=== PATIENT | female | born 1985 | race Caucasian/White ===

== ENCOUNTER 2017-04-21 18:19 | Emergency (ER) | payer OTHER, SELFPAY | END 2017-04-21 19:22 | disposition home or self-care (01) | PROVIDERS: Emergency Provider Nurse Practitioner; Family Provider Family Medicine; Visit Provider Nurse Practitioner | DX: J06.9 Acute upper respiratory infection, unspecified (principal); Z88.1 Allergy status to other antibiotic agents; R05 Cough | CPT/HCPCS: 87804; 99201 ==

== ENCOUNTER 2017-05-24 11:50 | Emergency (ER) | payer OTHER, SELFPAY ==
[2017-05-24 12:00] VITALS: BP 153/87; PULSE 94; RESP 20; TEMP 36.8; O2SAT 97; BMI 33.6
--- NOTE | 2017-05-24 12:15 | HMH.EDUTC ---
[facility] [place] Disposition Clinical Impression: Eustachian tube dysfunction Qualifiers: Laterality: bilateral Qualified Code(s): H69.83 - Other specified disorders of Eustachian tube, bilateral Disposition: Home, Self-Care Condition on Discharge: Good Instructions: DI for Eustachian Tube Dysfunction-Adult Additional Instructions: Continue zyrtec Start the flonase you have at home. 2 sprays each nostril daily. Can take several days to notice improvement Start sudafed. Ask for this at the pharmacy as it is behind the counter Sleep elevated Gargle warm salt water if sore throat starts I understand your history. Typically We try antihistamine, nasal steroid and decongestant first but I understand you want steroids because they haven't improved in the past without them. Steroids have risk and side effects as we discussed. Since you understand this, I will prescribe them at your request. Take as directed. Follow up for any new, worsening, or persistent symptoms. Fluid can lead to infection but no sign of infection at this time. Prescriptions: predniSONE [Prednisone 20mg Tab] 20 mg PO BID #10 tab Time of Disposition: 12:16 Medical Decision Making Vital Signs: 05/24/17 12:00 Temperature 98.2 F Temperature Source Temporal Artery Scan Pulse Rate [Right] 94 H Respiratory Rate 20 Blood Pressure [Right Arm] 153/87 Blood Pressure Mean [Right Arm] 109 Blood Pressure Source [Right Arm] Automatic Cuff Blood Pressure Position [Right Arm] Sitting 02 Sat by Pulse Oximetry 97 Oxygen Delivery Method Room Air - Pilo Inquiry Pt receiving controlled substance: No [facility] [place] HPI - General Stated complaint: earache Time Seen by Provider: 05/24/17 12:00 Mode of Arrival: Ambulatory Source of Information: Patient Limitations: No Limitations Description of Symptoms (Recalled from Triage Doc. by RN): EARS ACHE BEGAN YESTERDAY HEENT Symptoms (Recalled from RN notes): Yes Resp Symptoms (Recalled from RN notes): No Skin Symptoms (Recalled from RN notes): No MS Symptoms (Recalled from RN notes): No Functional Status (Recalled from RN notes): N - History of Present Illness Provider Complaint: c/o bilateral ear pain starting yesterday. Worried she has an ear infection. Worse today. Right worse then left. Worse when laying down, chewing, sneezing. Describes as fullness/pressure. Hearing seems muffled at times. Hx of OM. Last one Summer 2016. Denies hx of recent illness. I always have allergies though . Taking zyrtec daily. Ibuprofen has barely helped. Hasn't taken or tried anything else. No known sick contacts. - Related Data Previous Rx's Medication Instructions Recorded predniSONE [Prednisone 20mg 20 mg PO BID #10 tab 05/24/17 Tab] Allergies Allergy/AdvReac Type Severity Reaction Status Date / Time cefaclor [From CECLOR] Allergy Unknown Verified 05/24/17 12:03 clarithromycin [From BIAXIN] Allergy Unknown Verified 05/24/17 12:03 - Worker's Comp Is this a Worker's Comp case?: No [facility] History I have reviewed the patient's past medical history: Yes Medical History: Denies:: Diabetes Mellitus Type 2, Hypertension - *Social History Smoking Status: Never smoker Alcohol Intake: never - Psychiatric History Expresses thoughts of harming self/others: None Suicide Plan Description: No Plan ROS Obtained: Yes Systems reviewed as appropriate & no additional complaints - Constitutional Constitutional: Denies body ache, Denies chills, Denies fatigue, Denies fever(s) - Eyes Eyes: Denies eye discharge, Denies eye pain - ENT Ears, Nose, Mouth, and Throat: Reports as per HPI, Denies dizziness, Denies nasal congestion, Reports nasal discharge (minimal and clear), Denies pain with swallowing, Denies post nasal drip, Denies sinus pressure, Denies sore throat - Cardiovascular Cardiovascular: Denies chest pain, Denies irregular heart rhythm - Respiratory Respiratory: No cough, No dyspnea - Gastrointestinal Gastrointestinga
--- NOTE | 2017-05-24 12:18 | ED_ITS ---
[facility] [place] Disposition Clinical Impression: Eustachian tube dysfunction Qualifiers: Laterality: bilateral Qualified Code(s): H69.83 - Other specified disorders of Eustachian tube, bilateral Disposition: Home, Self-Care Condition on Discharge: Good Instructions: DI for Eustachian Tube Dysfunction-Adult Additional Instructions: Continue zyrtec Start the flonase you have at home. 2 sprays each nostril daily. Can take several days to notice improvement Start sudafed. Ask for this at the pharmacy as it is behind the counter Sleep elevated Gargle warm salt water if sore throat starts I understand your history. Typically We try antihistamine, nasal steroid and decongestant first but I understand you want steroids because they haven't improved in the past without them. Steroids have risk and side effects as we discussed. Since you understand this, I will prescribe them at your request. Take as directed. Follow up for any new, worsening, or persistent symptoms. Fluid can lead to infection but no sign of infection at this time. Prescriptions: predniSONE [Prednisone 20mg Tab] 20 mg PO BID #10 tab Time of Disposition: 12:16 Medical Decision Making Vital Signs: 05/24/17 12:00 Temperature 98.2 F Temperature Source Temporal Artery Scan Pulse Rate [Right] 94 H Respiratory Rate 20 Blood Pressure [Right Arm] 153/87 Blood Pressure Mean [Right Arm] 109 Blood Pressure Source [Right Arm] Automatic Cuff Blood Pressure Position [Right Arm] Sitting 02 Sat by Pulse Oximetry 97 Oxygen Delivery Method Room Air - Pilo Inquiry Pt receiving controlled substance: No [facility] [place] HPI - General Stated complaint: earache Time Seen by Provider: 05/24/17 12:00 Mode of Arrival: Ambulatory Source of Information: Patient Limitations: No Limitations Description of Symptoms (Recalled from Triage Doc. by RN): EARS ACHE BEGAN YESTERDAY HEENT Symptoms (Recalled from RN notes): Yes Resp Symptoms (Recalled from RN notes): No Skin Symptoms (Recalled from RN notes): No MS Symptoms (Recalled from RN notes): No Functional Status (Recalled from RN notes): N - History of Present Illness Provider Complaint: c/o bilateral ear pain starting yesterday. Worried she has an ear infection. Worse today. Right worse then left. Worse when laying down, chewing, sneezing. Describes as fullness/pressure. Hearing seems muffled at times. Hx of OM. Last one Summer 2016. Denies hx of recent illness. I always have allergies though . Taking zyrtec daily. Ibuprofen has barely helped. Hasn' t taken or tried anything else. No known sick contacts. - Related Data Previous Rx's Medication Instructions Recorded predniSONE [Prednisone 20mg 20 mg PO BID #10 tab 05/24/17 Tab] Allergies Allergy/AdvReac Type Severity Reaction Status Date / Time cefaclor [From CECLOR] Allergy Unknown Verified 05/24/17 12:03 clarithromycin [From BIAXIN] Allergy Unknown Verified 05/24/17 12:03 - Worker's Comp Is this a Worker's Comp case?: No [facility] History I have reviewed the patient's past medical history: Yes Medical History: Denies:: Diabetes Mellitus Type 2, Hypertension - *Social History Smoking Status: Never smoker Alcohol Intake: never - Psychiatric History Expresses thoughts of harming self/others: None Suicide Plan Description: No Plan ROS Obtained: Yes Systems reviewed as appropriate & no additional complain
== END 2017-05-24 12:33 | disposition home or self-care (01) ==
PROVIDERS: Emergency Provider Nurse Practitioner Family; Family Provider Family Medicine
DX: H69.83 Other specified disorders of Eustachian tube, bilateral (principal); Z88.1 Allergy status to other antibiotic agents
CPT/HCPCS: 99201

== ENCOUNTER → 2018-03-28 15:08 | Outpatient (POV) | payer OTHER, SELFPAY | PROVIDERS: Visit Provider Dermatology | DX: Z00.00 Encounter for general adult medical examination without abnormal findings (principal) ==

== ENCOUNTER 2021-05-18 06:00 | Emergency (ER) | payer OTHER, SELFPAY ==
[2021-05-18] VITALS (8 sets, daily range): BP systolic 140–186; BP diastolic 87–112; PULSE 105–129; RESP 18–20; TEMP 36.9–37.4; O2SAT 92–98; BMI 38.9
--- NOTE | 2021-05-18 06:28 | XR_ITS ---
FINAL REPORT CLINICAL HISTORY: Cough, eval for pna COMPARISON: June 12, 2019 FINDINGS: PA and lateral views of the chest were obtained. The heart is normal in size. The mediastinum is unremarkable. There are patchy bilateral pulmonary opacities consistent with bilateral pneumonia. No pneumothorax is identified. The bony thorax appears intact. IMPRESSION: Bilateral pneumonia. Reviewed, Interpreted and Dictated by Madhu Velasquez III, MD Transcribed by Osmani Powers Authenticated by Madhu Velasquez III, MD on 05/18/2021 07:24:44 AM [facility]
--- NOTE | 2021-05-18 06:30 | HMH.EDGENADL ---
ED Disposition Clinical Impression: Bilateral pneumonia Qualifiers: Pneumonia type: due to unspecified organism Lung location: unspecified part of lung Qualified Code(s): J18.9 - Pneumonia, unspecified organism Disposition: Home, Self-Care Condition on Discharge: Good Additional Instructions: Please take cefdinir twice per day for 7 days, please follow-up with Dr. Romero's office outpatient. Please return to the ED for any new or worsening symptoms try to stay well-hydrated. Prescriptions: Cefdinir [Omnicef 300mg Capsule] 300 mg PO BID #14 cap Transmission Status: Pending to [facility] ondansetron HCL [Zofran 4mg Tab*] 4 mg PO TIDP PRN #12 tab PRN Reason: Nausea Transmission Status: Pending to [facility] Referrals: Domingo Romero MD [Primary Care Provider] - - Critical Care Critical Care Time: No Attestation: On 05/18/21, the high probability of a clinically significant, sudden or life threatening deterioration of the following system(s) required my full and direct attention, intervention and personal management. The time I documented below is in addition to time spent performing reported procedures but includes the following listed in this critical care notation. Medical Decision Making - Medical Records Medical records reviewed: Yes: I reviewed the patient's medical records. - Pilo Inquiry Pt receiving controlled substance: No Vital Signs: 05/18/21 06:02 Temperature 98.4 F Temperature Source Oral Pulse Rate [Right Radial] 125 H Respiratory Rate 18 Blood Pressure [Right Arm] 170/112 H Blood Pressure Mean [Right Arm] 131 Blood Pressure Source [Right Arm] Automatic Cuff Blood Pressure Position [Right Arm] Sitting 02 Sat by Pulse Oximetry 96 Oxygen Delivery Method Room Air - Lab Data Lab Results 05/18/21 06:42: WBC 6.9, RBC 4.82, Hgb 14.3, Hct 44.6, MCV 92.4, MCH 29.6, MCHC 32.0, RDW 13.7, Plt Count 242, MPV 7.7, Neut % (Auto) 67.5, Lymph % (Auto) 25.7, Collin % (Auto) 5.0, Eos % (Auto) 0.9, Baso % (Auto) 1.0, Neut # (Auto) 4.7, Lymph # (Auto) 1.8, Collin # (Auto) 0.3, Eos # (Auto) 0.1, Baso # (Auto) 0.1 05/18/21 06:42: Sodium 137, Potassium 3.5, Chloride 100, Carbon Dioxide 30, Anion Gap 10.5, BUN 9, Creatinine 0.70, Estimated Creat Clear 175, Estimated GFR 95, Est GFR ( Amer) 115, Glucose 143 H, Calcium 9.0, Total Bilirubin 0.4, AST 41 H, ALT 41, Alkaline Phosphatase 71, Total Protein 8.0, Albumin 4.6, Globulin 3.4 H, Albumin/Globulin Ratio 1.4 05/18/21 06:42: Serum HCG, Qual Negative 05/18/21 06:42: D-Dimer 0.72 H Result diagrams: 05/18/21 06:42 05/18/21 06:42 Orders (Tests/Meds): ED MEDICATIONS Generic Name Dose Route Start Last Admin Trade Name Freq PRN Reason Stop Dose Admin Lactated Ringer's 1,000 mls @ 999 mls/hr 05/18/21 06:45 05/18/21 06:58 Lactated Ringer's 1000 Ml Bag IV 05/18/21 07:45 999 mls/hr .Q1H1M NATALYA Administration Ceftriaxone Sodium 1 gm/ 50 mls @ 100 mls/hr 05/18/21 07:30 Sodium Chloride IV 06/01/21 07:29 Q24H NATALYA Discontinued Medications Generic Name Dose Route Start Last Admin Trade Name Freq PRN Reason Stop Dose Admin Ketorolac Tromethamine 15 mg 05/18/21 06:43 05/18/21 06:59 Ketorolac 30mg/Ml Vial IV 05/18/21 06:44 15 mg ONCE ONE Administration Ondansetron HCl 4 mg 05/18/21 06:43 05/18/21 06:59 Ondansetron 4mg/2ml Vial IV 05/18/21 06:44 4 mg ONCE ONE Administration ORDERS Category Date Time Status EKG Request [ECG Request by /Renan] Stat Y 05/18/21 06:29 Ordered Medical Decision Narrative: Patient is a 35-year-old female presents ED today for evaluation of cough, congestion, shortness of breath, and episode of presyncope today. Patient appears to feel unwell initial evaluation, is fairly tachycardic with a heart rate of 1 20-1 30, and hypertensive. Patient does appear anxious, and is worried about her current symptoms, but does not have history consistent with severe dehydration.
--- NOTE | 2021-05-18 06:51 | ECG_ITS ---
APPROVED REPORT Exam: Resting ECG HR:111 bpm ECG Measurements Heart Rate 111 AXES WY 170 P 49 QRSd 90 QRS 65 QT 344 T 16 QTc 467 Conclusion Sinus tachycardia Otherwise normal ECG Electronically signed by : Domingo Fagan MD 05/19/2021 19:58:37
[2021-05-18 06:53] LABS: Basophils # 0.1 K/mm3 (0-0.2); Eosinophils # 0.1 K/mm3 (0.0-0.4); Eosinophils % 0.9 % (0.1-12.0); Hematocrit 44.6 % (37.0-47.0); Hemoglobin 14.3 g/dL (12.2-16.2); Lymphocytes # 1.8 K/mm3 (0.7-4.5); Lymphocytes % 25.7 % (10-50); Mean Corpuscular Hemoglobin 29.6 pg (27.0-31.2); Mean Corpuscular Volume 92.4 fl (81-99); Mean Platelet Volume 7.7 fl (7.4-10.4); Monocytes # 0.3 K/mm3 (0.1-1.0); Neutrophils # 4.7 K/mm3 (1.8-7.8); Neutrophils % 67.5 % (37.0-80.0); Platelet Count 242 K/mm3 (142-424); Red Blood Count 4.82 M/mm3 (4.20-5.40); Red Cell Distribution Width 13.7 % (11.5-17.5); White Blood Count 6.9 K/mm3 (4.8-10.8)
[2021-05-18 07:04] LABS: Alanine Aminotransferase 41 U/L (12-78); Albumin Level 4.6 g/dl (3.5-5.0); Albumin/Globulin Ratio 1.4 (1.1-1.8); Alkaline Phosphatase 71 U/L (38-126); Anion Gap 10.5 mEq/L (5-15); Aspartate Amino Transferase 41 U/L (14-36); Bilirubin,Total 0.4 mg/dl (0.2-1.3); Blood Urea Nitrogen 9 mg/dl (7-17); Carbon Dioxide 30 mmol/L (22.0-30.0); Chloride 100 mmol/L (98-107); Creatinine Clearance Estimated 175 mL/min (50-200); Estimated Glomerular Filt Rate 95 ml/min (>60); GFR (African American) 115 ML/MIN (>60); Globulin 3.4 g/dL (1.3-3.2); Glucose 143 mg/dl (74-100); Potassium 3.5 mmoL/L (3.5-5.1); Sodium 137 mmol/L (136-145)
[2021-05-18 07:13] LABS: HCG Qualitative, Serum Negative (Negative)
[2021-05-18 07:23] LABS: D-Dimer 0.72 ug/mL (0.0-0.5)
[2021-05-18 08:05] LABS: Coronavirus 19, PCR Not Detected (NotDetected); Influenza A, PCR Not Detected (NotDetected); Influenza B, PCR Not Detected (NotDetected)
== END 2021-05-18 09:18 | disposition home or self-care (01) ==
PROVIDERS: Emergency Provider Student in an Organized Health Care Education/Training Program; PCP Family Medicine
DX: J18.9 Pneumonia, unspecified organism (principal)
CPT/HCPCS: 71046; 80053; 84703; 85025; 85378; 93005; 96365; 96375; 99283; C9803; J0696; J2405; U0003; U0005

== ENCOUNTER 2021-09-28 16:17 | Emergency (ER) | payer OTHER, SELFPAY ==
[2021-09-28 17:06] VITALS: BP 163/103; PULSE 122; RESP 18; TEMP 37.9; O2SAT 96; BMI 38.9
--- NOTE | 2021-09-28 17:12 | HMH.EDUTC ---
[facility] [place] Disposition Clinical Impression: Strep throat Disposition: Home, Self-Care Condition on Discharge: Good Instructions: Strep Throat, DI for Strep Throat Additional Instructions: Drink plenty of fluids. Take tylenol or ibuprofen for pain or fever. Take the medications as directed. Follow up with your regular doctor. GO TO THE ER FOR ANY WORSENING SYMPTOMS Don't start the oral steroids until tomorrow, since you had the shot here today. Prescriptions: Brompheniramine/Pseudoephed/Dm [Bromfed Dm Cough Syrup] 5 ml PO Q6HP PRN #240 ml PRN Reason: Cough Transmission Status: Received by [facility] Amoxicillin/Potassium Clav [Amox-Clav 875-125 mg Tablet] 1 tab PO BID #20 tab Transmission Status: Received by [facility] methylPREDNISolone [Medrol] 4 mg PO DIRECTED 6 Days #21 packet Transmission Status: Received by [facility] Referrals: Sherry Peña MD [Primary Care Provider] - Forms: Work/School Release Time of Disposition: 17:28 Medical Decision Making - Medical Records Medical records reviewed: No: I reviewed the patient's medical records. - Pilo Inquiry Pt receiving controlled substance: No Vital Signs: 09/28/21 17:06 09/28/21 17:52 Temperature 100.2 F H 99.9 F H Temperature Source Oral Pulse Rate 122 H Pulse Rate [Left Radial] 122 H Respiratory Rate 18 18 Blood Pressure 163/103 H Blood Pressure [Right Arm] 163/103 H Blood Pressure Mean [Right Arm] 123 02 Sat by Pulse Oximetry 96 - Lab Data Lab results reviewed: Yes: I reviewed the patient's lab results. Lab Results 09/28/21 16:55: Group A Strep Rapid Negative Orders (Tests/Meds): ED MEDICATIONS Discontinued Medications Generic Name Dose Route Start Last Admin Trade Name Freq PRN Reason Stop Dose Admin Amoxicillin/Clavulanate Potassium 1 each 09/28/21 17:47 09/28/21 17:48 Amoxicillin/Pot Clavulan 500mg Tablet PO 09/28/21 17:48 1 each ONCE ONE Administration Dexamethasone Sodium Phosphate 8 mg 09/28/21 17:25 09/28/21 17:39 Dexamethasone 4mg/Ml 1ml Vial IM 09/28/21 17:26 8 mg ONCE ONE Administration ORDERS Category Date Time Status Strep Screen Confirmation Stat Micro 09/28/21 16:[address] [facility] [place] HPI - General Stated complaint: SORE THROAT Time Seen by Provider: 09/28/21 17:12 - History of Present Illness Provider Complaint: She states that she has had a very sore throat for the past 3 days. She has had chilling and low grade fever too. - Related Data Home Medications Medication Instructions Recorded Confirmed Cetirizine HCl [Zyrtec] 10 mg PO DAILY 08/15/17 12/30/20 Previous Rx's Medication Instructions Recorded Albuterol Sulfate [Albuterol HFA 1 - 2 puffs IH Q4-6H PRN #1 inh 06/12/19 Inhaler] norgestimate-ethinyl estradiol 1 tab PO DAILY 30 Days #84 tab 12/30/20 0.18 mg/0.215mg/0.25mg-35 mcg(28)tablet Cefdinir [Omnicef 300mg Capsule] 300 mg PO BID #14 cap 05/18/21 ondansetron HCL [Zofran 4mg Tab*] 4 mg PO TIDP PRN #12 tab 05/18/21 Amoxicillin/Potassium Clav 1 tab PO BID #20 tab 09/28/21 [Amox-Clav 875-125 mg Tablet] Brompheniramine/Pseudoephed/Dm 5 ml PO Q6HP PRN #240 ml 09/28/21 [Bromfed Dm Cough Syrup] methylPREDNISolone [Medrol] 4 mg PO DIRECTED 6 Days #21 09/28/21 packet Allergies Allergy/AdvReac Type Severity Reaction Status Date / Time cefaclor [From CECLOR] Allergy Unknown Verified 07/04/18 14:41 clarithromycin [From BIAXIN] Allergy Unknown Verified 07/04/18 14:41 [facility] History - Hepatitis A Screen Attestation statement:: This patient has been screened for Hepatitis A risk factors. I have reviewed the patient's past medical history: Yes Medical History: Denies:: Cancer, Diabetes Mellitus Type 1, Diabetes Mellitus Type 2, Hypertension, MRSA Other Medical History: Reports: Other Other Surgeries: Yes: Other Amputation: No Fractures: No Comment: left elbow
[2021-09-28 17:52] VITALS: BP 163/103; PULSE 122; RESP 18; TEMP 37.7
[2021-09-28 19:51] LABS: Strep Scrn Group A (Rapid) Negative (Negative)
== END 2021-09-28 17:52 | disposition home or self-care (01) ==
PROVIDERS: Emergency Provider Nurse Practitioner Family; PCP Family Medicine
DX: J02.9 Acute pharyngitis, unspecified (principal); Z79.51 Long term (current) use of inhaled steroids; Z79.52 Long term (current) use of systemic steroids; Z79.899 Other long term (current) drug therapy; Z88.8 Allergy status to other drugs, medicaments and biological substances
CPT/HCPCS: 87430; 96372; 99213; G0463

== ENCOUNTER → 2022-07-05 14:01 | Outpatient (CLI) | payer OTHER, SELFPAY ==
[2022-07-05 15:56] LABS: HCG,Quantitative 5739 mIU/ml (0-5.42)
[2022-07-07 08:15] LABS: Progesterone 5.3 ng/mL (.)
== END ==
PROVIDERS: PCP Nurse Practitioner Family; Visit Provider Nurse Practitioner Obstetrics & Gynecology
DX: N92.6 Irregular menstruation, unspecified (principal); Z32.00 Encounter for pregnancy test, result unknown
CPT/HCPCS: 36415; 84144; 84702

== ENCOUNTER → 2022-07-19 07:42 | Outpatient (CLI) | payer OTHER, SELFPAY ==
--- NOTE | 2022-07-19 07:42 | US_ITS ---
FINAL REPORT TECHNIQUE: Transvaginal ultrasound imaging of the pelvis was obtained. CLINICAL HISTORY: for dates FINDINGS: A single, living intrauterine is identified. Yolk sac is identified. heart rate is detected at 155 beats per minute. [place]-rump length measures 11.13 mm consistent with 7 weeks 2 days gestation. Ovaries are within normal limits. Note is made of a 1.8 cm fibroid which is partially exophytic. IMPRESSION: Single, living intrauterine consistent with 7 weeks 2 days gestation. Reviewed, Interpreted and Dictated by Boni Sanchez MD Transcribed by Francine Reina Authenticated and . [facility]
== END ==
PROVIDERS: PCP Nurse Practitioner Family; Visit Provider Nurse Practitioner Obstetrics & Gynecology
DX: Z34.90 Encounter for supervision of normal pregnancy, unspecified, unspecified trimester (principal)
CPT/HCPCS: 76801

== ENCOUNTER → 2022-07-28 14:21 | Outpatient (CLI) | payer OTHER, SELFPAY ==
[2022-07-28 17:26] LABS: Basophils # 0.1 K/mm3 (0-0.2); Basophils % 0.4 % (0.1-2.0); Eosinophils # 0.1 K/mm3 (0.0-0.4); Eosinophils % 0.6 % (0.1-12.0); Hematocrit 39.4 % (37.0-47.0); Hemoglobin 12.4 g/dL (12.2-16.2); Lymphocytes # 2.4 K/mm3 (0.7-4.5); Lymphocytes % 19.3 % (10-50); Mean Corpuscular HGB Conc 31.5 g/dL (31.8-35.4); Mean Corpuscular Hemoglobin 28.5 pg (27.0-31.2); Mean Corpuscular Volume 90.4 fl (81-99); Mean Platelet Volume 8.3 fl (7.4-10.4); Monocytes # 0.7 K/mm3 (0.1-1.0); Monocytes % 5.7 % (1.7-9.3); Neutrophils # 9.1 K/mm3 (1.8-7.8); Neutrophils % 73.9 % (37.0-80.0); Platelet Count 393 K/mm3 (142-424); Red Blood Count 4.36 M/mm3 (4.20-5.40); White Blood Count 12.3 K/mm3 (4.8-10.8)
[2022-07-30 09:51] LABS: Progesterone 12.1 ng/mL (.); Rubella Antibodies, IgG 1.01 index (Immune >0.99)
[2022-07-30 10:32] LABS: HIV Screen 4th Generation wRfx Non Reactive (Non Reactive)
[2022-07-30 23:32] LABS: Neisseria gonorrhoeae, NAA Negative (Negative)
[2022-08-04 03:46] LABS: Rapid Plasma Reagin Ab Titer NON REACTIVE
[2022-08-04 03:47] LABS: Hepatitis B Surface Antigen NEGATIVE; Hepatitis C Antibody NON REACTIVE
== END ==
PROVIDERS: PCP Nurse Practitioner Family; Visit Provider Nurse Practitioner Obstetrics & Gynecology
DX: Z34.90 Encounter for supervision of normal pregnancy, unspecified, unspecified trimester (principal)
CPT/HCPCS: 36415; 84144; 85025; 86593; 86703; 86762; 86850; 87086; 87340; 87380; 87491; 87591; G0432

== ENCOUNTER → 2022-11-22 10:13 | Outpatient (CLI) | payer OTHER, SELFPAY ==
--- NOTE | 2022-11-22 10:13 | US_ITS ---
PROCEDURE: US OB FOLLOW UP CLINICAL INDICATION: follow up scan of heart on the baby COMPARISON: US US OB <= 14 WEEKS FETUS from 07/19/2022 FINDINGS: Transabdominal sonographic images of the uterus were obtained . From her established due date she is 25 weeks 2 days. Single viable intrauterine gestation. Cephalic position. Placenta: Anteriorplacenta grade 1. There is average amount fluid. The cervix appears satisfactory. Closed and measuring 2.73 cm in length. Limited survey performed and was unremarkable on the submitted images as in PACS. No discrete major anomalies identified on survey imaging by technologist. Active fetus. Three-vessel cord with satisfactory umbilical cord insertion. 4- chamber heart noted. [place], RVOT LVOT aortic arch appear normal. . Face and neck survey unremarkable. Profile and nasion appear normal. Diaphragm and chest views unremarkable. Abdomen: Both kidneys noted and there is mild renal pyelectasis measuring 3.6 mm in one kidney. Stomach and bladder noted and satisfactory. Amniotic Fluid: Adequate. Measurements: Average ultrasound age 27weeks 2days. Estimated due date by ultrasound age 1002/19/2023. Estimated weight 1,015g BPD = 27weeks 6days OFD = 26weeks 2days HC = 27weeks 2days AC = 27weeks 3days FL = 26weeks 3days Growth Percentile= 83 percent Heart Rate = 147bpm HC/AC is 1.09 CI is 0.81 FL/BPD is 0.7 FL/AC is 0.21 There are 3 separate fibroids in the myometrium. Fibroid 1. Measures 7.6 cm x 6.7 cm x 5.5 cm Fibroid 2. Measures 3.5 cm x 3.8 cm x 3.2 cm Fibroid 3. Measures 2.1 cm x 1.4 cm x 4.0 cm IMPRESSION: 1. The limited anatomical scan appears normal. 2. The detailed cardiac scan appears normal. 3. The fetus is globally 2 weeks ahead on its growth. 4. The three fibroids previously seen on 07/19/2022 have shown some interval growth. Dictated by: Shaw Fontenot MD 11/22/2022 16:45 Shaw Fontenot MD in [place] 11/22/2022 16:45
== END ==
PROVIDERS: PCP Nurse Practitioner Family; Visit Provider Nurse Practitioner Obstetrics & Gynecology
DX: O28.3 Abnormal ultrasonic finding on antenatal screening of mother (principal); Z34.92 Encounter for supervision of normal pregnancy, unspecified, second trimester; Z3A.24 24 weeks gestation of pregnancy
CPT/HCPCS: 76816

== ENCOUNTER → 2022-12-01 09:23 | Outpatient (CLI) | payer OTHER, SELFPAY ==
[2022-12-01 09:49] LABS: Glucose,Fasting 89 mg/dl (74-100)
[2022-12-01 09:58] LABS: Basophils % 0.3 % (0.1-2.0); Eosinophils # 0.1 K/mm3 (0.0-0.4); Eosinophils % 1.2 % (0.1-12.0); Hematocrit 35.6 % (37.0-47.0); Hemoglobin 11.4 g/dL (12.2-16.2); Lymphocytes # 1.8 K/mm3 (0.7-4.5); Lymphocytes % 16.2 % (10-50); Mean Corpuscular Hemoglobin 27.6 pg (27.0-31.2); Mean Corpuscular Volume 86.1 fl (81-99); Mean Platelet Volume 8.2 fl (7.4-10.4); Monocytes # 0.4 K/mm3 (0.1-1.0); Neutrophils # 8.5 K/mm3 (1.8-7.8); Neutrophils % 78.3 % (37.0-80.0); Platelet Count 296 K/mm3 (142-424); Red Blood Count 4.14 M/mm3 (4.20-5.40); Red Cell Distribution Width 14.7 % (11.5-17.5); White Blood Count 10.9 K/mm3 (4.8-10.8)
[2022-12-01 11:15] LABS: Glucose 1 Hour 125 mg/dL (74-100)
== END ==
PROVIDERS: PCP Nurse Practitioner Family; Visit Provider Nurse Practitioner Obstetrics & Gynecology
DX: Z34.92 Encounter for supervision of normal pregnancy, unspecified, second trimester (principal); Z3A.26 26 weeks gestation of pregnancy
CPT/HCPCS: 36415; 82951; 85025

== ENCOUNTER → 2023-01-05 13:46 | Outpatient (CLI) | payer OTHER, SELFPAY ==
--- NOTE | 2023-01-05 13:46 | US_ITS ---
PROCEDURE: US OB BIOPHYSICAL PROFILE CLINICAL INDICATION: Growth, CONNIE, BPP COMPARISON: 07/19/2022 early dating ultrasound FINDINGS: Transabdominal sonographic images of the uterus were obtained. From her established due date she is 31weeks 4days. The following parameters are obtained: Single viable fetus in the cephalic presentation with an anterior placenta grade 1. The cervix measures 2.5 cm. Average ultrasound age is 34weeks 4days. Estimated weight is 5lb 5.2oz, 2415 grams.. >98 percentile. heart rate: 143bpm bpm. BPD: 33weeks 1day OFD: 33weeks 1day HC: 35 weeks 5 days AC: 35 weeks 1 day FL: 32 weeks 2 days HC/AC: 1.02 Cephalic index: 0.82 FL/BPD: 0.72 FL/AC: 0.2 Amniotic fluid index: 14.89cm Qualitative AFV: 2 breathing movements: 2 Gross body movements: 2 Tone: 2 Biophysical profile score: 8 No obvious anomalies evident.Kidneys, four-chamber heart, profile, nasion, bladder, stomach three-vessel cord appear normal. IMPRESSION: 1. Viable fetus in the cephalic presentation and placenta grade 1. 2. The fluid is within normal limits with an amniotic fluid index of 14.9 cm. 3. Biophysical profile is 8/8 with good breathing movement seen. 4. The fetus has shown accelerated growth with the AC and head circumference currently 4 weeks ahead of dates. Dictated by: Shaw Fontenot MD 01/05/2023 17:33 Shaw Fontenot MD in [place] 01/05/2023 17:33
== END ==
PROVIDERS: PCP Nurse Practitioner Family; Visit Provider Nurse Practitioner Obstetrics & Gynecology
DX: O16.3 Unspecified maternal hypertension, third trimester (principal); Z3A.31 31 weeks gestation of pregnancy
CPT/HCPCS: 76816; 76819

== ENCOUNTER → 2023-01-11 11:08 | Outpatient (CLI) | payer OTHER, SELFPAY ==
[2023-01-11 11:32] LABS: Basophils % 0.3 % (0.1-2.0); Eosinophils # 0.1 K/mm3 (0.0-0.4); Hematocrit 37.1 % (37.0-47.0); Lymphocytes # 1.6 K/mm3 (0.7-4.5); Lymphocytes % 15.5 % (10-50); Mean Corpuscular HGB Conc 32.3 g/dL (31.8-35.4); Mean Corpuscular Hemoglobin 28.2 pg (27.0-31.2); Mean Corpuscular Volume 87.2 fl (81-99); Mean Platelet Volume 7.9 fl (7.4-10.4); Monocytes # 0.6 K/mm3 (0.1-1.0); Monocytes % 5.5 % (1.7-9.3); Neutrophils # 7.8 K/mm3 (1.8-7.8); Neutrophils % 77.8 % (37.0-80.0); Platelet Count 256 K/mm3 (142-424); Red Blood Count 4.25 M/mm3 (4.20-5.40)
[2023-01-11 12:22] LABS: Alanine Aminotransferase 15 U/L (12-78); Albumin Level 3.2 g/dl (3.5-5.0); Alkaline Phosphatase 104 U/L (38-126); Anion Gap 12.1 mEq/L (5-15); Aspartate Amino Transferase 20 U/L (14-36); Blood Urea Nitrogen 6 mg/dl (7-17); Calcium 8.7 mg/dl (8.4-10.2); Carbon Dioxide 21 mmol/L (22.0-30.0); Chloride 107 mmol/L (98-107); Estimated Glomerular Filt Rate 179 ml/min (>60); GFR (African American) 216 ML/MIN (>60); Globulin 3.1 g/dL (1.3-3.2); Glucose 72 mg/dl (74-100); Potassium 4.1 mmoL/L (3.5-5.1); Sodium 136 mmol/L (136-145); Total Protein,Serum 6.3 g/dl (6.3-8.2)
[2023-01-11 12:32] LABS: Bilirubin,Total 0.1 mg/dl (0.2-1.3)
== END ==
PROVIDERS: PCP Nurse Practitioner Family; Visit Provider Obstetrics & Gynecology
DX: O16.9 Unspecified maternal hypertension, unspecified trimester (principal); Z3A.32 32 weeks gestation of pregnancy
CPT/HCPCS: 36415; 80053; 85025

== ENCOUNTER → 2023-01-17 07:48 | Outpatient (CLI) | payer OTHER, SELFPAY ==
[2023-01-17 15:56] LABS: Total Volume,Urine 1500 mL (600-1600)
[2023-01-17 16:07] LABS: Total Protein 24 Hour,Urine 105 mg/24 hr (40-90)
== END ==
PROVIDERS: PCP Nurse Practitioner Family; Visit Provider Obstetrics & Gynecology
DX: O16.9 Unspecified maternal hypertension, unspecified trimester (principal); Z3A.33 33 weeks gestation of pregnancy
CPT/HCPCS: 84155

== ENCOUNTER → 2023-02-07 12:53 | Outpatient (CLI) | payer OTHER, SELFPAY | PROVIDERS: PCP Nurse Practitioner Obstetrics & Gynecology; Visit Provider Nurse Practitioner Obstetrics & Gynecology | DX: Z34.93 Encounter for supervision of normal pregnancy, unspecified, third trimester (principal); Z3A.36 36 weeks gestation of pregnancy ==

== ENCOUNTER → 2023-02-07 14:01 | Outpatient (CLI) | payer OTHER, SELFPAY ==
[2023-02-07 12:58] LABS: Basophils % 0.3 % (0.1-2.0); Eosinophils # 0.1 K/mm3 (0.0-0.4); Eosinophils % 0.8 % (0.1-12.0); Hematocrit 39.1 % (37.0-47.0); Hemoglobin 12.7 g/dL (12.2-16.2); Lymphocytes # 1.7 K/mm3 (0.7-4.5); Lymphocytes % 17.9 % (10-50); Mean Corpuscular HGB Conc 32.4 g/dL (31.8-35.4); Mean Corpuscular Hemoglobin 28.2 pg (27.0-31.2); Mean Platelet Volume 8.7 fl (7.4-10.4); Monocytes # 0.5 K/mm3 (0.1-1.0); Monocytes % 5.4 % (1.7-9.3); Neutrophils # 7.3 K/mm3 (1.8-7.8); Neutrophils % 75.6 % (37.0-80.0); Platelet Count 211 K/mm3 (142-424); Red Cell Distribution Width 15.1 % (11.5-17.5); White Blood Count 9.7 K/mm3 (4.8-10.8)
[2023-02-07 13:13] LABS: Activated Partial Thrombo Time 27.4 seconds (22.8-30.6); Fibrinogen 497 mg/dL (229.9-363.5); Prothrombin Time 9.8 seconds (10.1-12.5)
[2023-02-07 13:15] LABS: D-Dimer 0.94 ug/mL (0.0-0.5)
[2023-02-07 14:51] LABS: Alanine Aminotransferase 15 U/L (12-78); Aspartate Amino Transferase 22 U/L (14-36); Blood Urea Nitrogen 7 mg/dl (7-17); Calcium 8.7 mg/dl (8.4-10.2); Carbon Dioxide 22 mmol/L (22.0-30.0); Chloride 110 mmol/L (98-107); Estimated Glomerular Filt Rate 249 ml/min (>60); GFR (African American) 301 ML/MIN (>60); Glucose 56 mg/dl (74-100); Sodium 138 mmol/L (136-145); Uric Acid 4.1 mg/dl (2.5-6.2)
== END ==
PROVIDERS: PCP Nurse Practitioner Family; Visit Provider Nurse Practitioner Obstetrics & Gynecology
DX: O13.3 Gestational [pregnancy-induced] hypertension without significant proteinuria, third trimester (principal); Z3A.36 36 weeks gestation of pregnancy
CPT/HCPCS: 36415; 80048; 84450; 84460; 84550; 85025; 85378; 85384; 85610; 85730; 86403

== ENCOUNTER → 2023-02-08 08:49 | Outpatient (CLI) | payer OTHER, SELFPAY | PROVIDERS: PCP Nurse Practitioner Family; Visit Provider Obstetrics & Gynecology | DX: O36.60X0 Maternal care for excessive fetal growth, unspecified trimester, not applicable or unspecified (principal); O10.919 Unspecified pre-existing hypertension complicating pregnancy, unspecified trimester ==

== ENCOUNTER → 2023-02-10 13:32 | Outpatient (CLI) | payer OTHER, SELFPAY ==
--- NOTE | 2023-02-10 13:37 | US_ITS ---
PROCEDURE: US OB BIOPHYSICAL PROFILE CLINICAL INDICATION: LGA/ Chronic Hypertension COMPARISON: FINDINGS: Transabdominal sonographic images of the uterus were obtained. From her established due date she is 36weeks 5days. The following parameters are obtained: Viable fetus in the cephalic presentation with an anterior placenta grade 2 Average ultrasound age is 38weeks 6days. Estimated due date by ultrasound is 02/18/2023. Estimated weight is 8lb 4oz, 3749 grams BPD: 38 weeks 3 days HC: 38 weeks 5 days AC: 40 weeks 1 day FL: 38 weeks 1 day HC/AC: 0.93 Cephalic index: 0.81 FL/BPD: 0.79 FL/AC: 0.21 Greater than 99 percentile Amniotic fluid index: 10.86cm Qualitative AFV: 2 breathing movements: 2 Gross body movements: 2 Tone: 2 Biophysical profile score: 8 No obvious anomalies evident. four-chamber heart, three-vessel cord appear normal. IMPRESSION: 1. Viable fetus in the cephalic presentation with an anterior placenta grade 2. 2. Fluid is within normal limits with an amniotic fluid index of 10.86 cm. 3. There continues to be accelerated growth with the fetus currently greater than the 99th percentile. 4. The abdominal circumference is currently 3-1/2 weeks ahead. 5. Biophysical profile 12/07 with good breathing movement and movement seen. Dictated by: Shaw Fontenot MD 02/12/2023 10:17 Shaw Fontenot MD in [place] 02/12/2023 10:17
== END ==
PROVIDERS: PCP Nurse Practitioner Family; Visit Provider Obstetrics & Gynecology
DX: O36.63X0 Maternal care for excessive fetal growth, third trimester, not applicable or unspecified (principal); O10.919 Unspecified pre-existing hypertension complicating pregnancy, unspecified trimester; Z3A.36 36 weeks gestation of pregnancy
CPT/HCPCS: 76816; 76819

== ENCOUNTER 2023-02-14 15:00 | Outpatient (CLI) | payer OTHER, SELFPAY ==
[2023-02-14 15:11] VITALS: BMI 41.4
[2023-02-14 15:57] LABS: Microscopic, Urine URINE MICROSCOPIC (MICROSCOPIC)
[2023-02-14 16:10] LABS: Appearance,Urine SL CLOUDY (Clear); Bilirubin,Urine Negative (Negative); Blood, Urine Negative (Negative); Color,Urine YELLOW (Yellow); Glucose,Urine (UA) Negative (Negative); Ketones,Urine 1+ (Negative); Leukocyte Esterase,Urine 1+ (Negative); Nitrate,Urine Negative (Negative); Protein,Urine Negative (Negative); Urobilinogen,Urine 0.2 EU/dl (0.2)
[2023-02-14 16:14] LABS: Basophils % 0.2 % (0.1-2.0); Eosinophils # 0.1 K/mm3 (0.0-0.4); Eosinophils % 0.6 % (0.1-12.0); Hematocrit 38.6 % (37.0-47.0); Hemoglobin 13.3 g/dL (12.2-16.2); Lymphocytes % 16.7 % (10-50); Mean Corpuscular HGB Conc 34.6 g/dL (31.8-35.4); Mean Corpuscular Hemoglobin 30.3 pg (27.0-31.2); Mean Corpuscular Volume 87.7 fl (81-99); Monocytes # 0.6 K/mm3 (0.1-1.0); Monocytes % 4.9 % (1.7-9.3); Neutrophils # 9.3 K/mm3 (1.8-7.8); Neutrophils % 77.7 % (37.0-80.0); Platelet Count 229 K/mm3 (142-424); Red Cell Distribution Width 15.2 % (11.5-17.5); White Blood Count 11.9 K/mm3 (4.8-10.8)
[2023-02-14 16:22] LABS: Chloride 106 mmol/L (98-107)
[2023-02-14 16:23] LABS: Potassium 3.8 mmoL/L (3.5-5.1); Sodium 132 mmol/L (136-145)
[2023-02-14 16:24] LABS: Activated Partial Thrombo Time 26.9 seconds (22.8-30.6); Fibrinogen 515 mg/dL (229.9-363.5); INR 0.88 (0.9-1.1); Prothrombin Time 9.6 seconds (10.1-12.5)
[2023-02-14 16:26] LABS: Alanine Aminotransferase 22 U/L (12-78); Anion Gap 9.8 mEq/L (5-15); Aspartate Amino Transferase 33 U/L (14-36); Blood Urea Nitrogen 8 mg/dl (7-17); Calcium 9.4 mg/dl (8.4-10.2); Carbon Dioxide 20 mmol/L (22.0-30.0); Creatinine Clearance Estimated 158 mL/min (50-200); Estimated Glomerular Filt Rate 179 ml/min (>60); GFR (African American) 216 ML/MIN (>60); Glucose 91 mg/dl (74-100)
[2023-02-14 16:28] LABS: Barbiturates Screen,Urine Negative ng/ml (<200)
[2023-02-14 16:29] LABS: Amphetamine/Metha Screen,Urine Negative ng/ml (<1000); Cannabinoid Screen,Urine Negative ng/ml (<50)
[2023-02-14 16:30] LABS: Benzodiazepines Screen,Urine Negative ng/ml (<200)
[2023-02-14 16:31] LABS: Cocaine Screen,Urine Negative ng/ml (<300); Methadone Screen,Urine Negative ng/ml (<300)
[2023-02-14 16:32] LABS: Opiate Screen,Urine Negative ng/ml (<300); Phencyclidine Screen,Urine Negative ng/ml (<25)
[2023-02-14 16:37] VITALS: BP 151/88; PULSE 90; RESP 18; TEMP 37; O2SAT 100; BMI 41.4
[2023-02-14 16:38] LABS: D-Dimer 0.77 ug/mL (0.0-0.5)
[2023-02-14 16:50] LABS: Bacteria,Urine Trace /lpf
[2023-02-14 16:51] LABS: Uric Acid 4.5 mg/dl (2.5-6.2)
== END 2023-02-14 18:08 | disposition home or self-care (01) ==
LOC: OBOUT 15:05 → OB 15:05
PROVIDERS: PCP Nurse Practitioner Family; Visit Provider Nurse Practitioner Obstetrics & Gynecology
DX: O60.03 Preterm labor without delivery, third trimester (principal); Z3A.38 38 weeks gestation of pregnancy; O13.3 Gestational [pregnancy-induced] hypertension without significant proteinuria, third trimester
CPT/HCPCS: 59025; 80048; 80305; 81001; 84450; 84460; 84550; 85025; 85378; 85384; 85610; 85730; 87086; 96365; G0463

== ENCOUNTER 2023-02-17 10:25 | Inpatient (IN) | payer OTHER, SELFPAY ==
[2023-02-17] VITALS (8 sets, daily range): BP systolic 113–152; BP diastolic 64–96; PULSE 80–97; RESP 12–18; TEMP 36.4–36.8; O2SAT 97–100; BMI 41.3
--- NOTE | 2023-02-17 10:36 | HMH.PHAINT1 ---
Pharmacy Intervention Comments: MEDICATION RECONCILIATION COMPLETED ON PATIENT USING EXTERNAL FILL HISTORY FROM PHARMACY. -KASSANDRA JIMENEZ, TESSAD
--- NOTE | 2023-02-17 11:24 | EXP.HP ---
History of Present Illness *Admission Date: 02/17/23 *Reason for visit:: Term , large for gestational age, -induced hypertension, *History of present illness: She is a 37-year-old 2 para 1 at 37 and 5 weeks gestational age. She has been followed for chronic hypertension and her blood pressures have increased. She has proteinuria today. She has significant pedal edema. She has been taking nifedipine 60 mg for her increased blood pressure. Recent ultrasound showed that her baby was extremely large for gestational age. 2 weeks ago it was 8 pounds 6 ounces. We discussed the baby's size and she has elected for a primary section. She also expressed desire for sterilization. We had scheduled her for next week but given the fact that her blood pressure has continued to rise and she has significant edema we will go ahead and deliver her today. We discussed the risks of surgery with the patient and her . [facility] Disclaimer: The information contained in this section may have been updated after the patient was seen, as this information can be updated by other users. Medical History Advanced maternal age affecting , antepartum Gestational hypertension Surgical History Hx of elbow surgery Family History Diabetes Coronary artery disease Hyperlipidemia Heart attack Cancer Hypertension Social History Smoking Status: Never smoker alcohol intake: never substance use type: denies use current occupational status: employed Travel in the last 8 weeks: None housing: house Review of Systems Review of Systems Review of systems:: pertinent systems reviewed and negative unless documented below Meds Home Medications and Allergies Home Medications Medication Instructions Recorded Confirmed Type aspirin 81 mg tablet,delayed 81 mg PO DAILY Heart Health 02/17/23 02/17/23 History release (Adult Low Dose Aspirin) ferrous sulfate 325 mg (65 mg 325 mg PO DAILY Supplement 02/17/23 02/17/23 History iron) tablet nifedipine 60 mg tablet,extended 60 mg PO DAILY High Blood Pressure 02/17/23 02/17/23 History release vit no.95-ferrous 1 tab PO DAILY Supplement 02/17/23 02/17/23 History fumarate 28 mg-folic acid 800 mcg tablet () New Prescriptions to Start Prescriptions: Allergies Allergy/AdvReac Type Severity Reaction Status Date / Time cefaclor [From CECLOR] Allergy Unknown Verified 02/17/23 08:51 clarithromycin [From BIAXIN] Allergy Unknown Verified 02/17/23 08:51 Exam Data for Last 24 hours I & O for Last 24 hours: Intake & Output 02/14/23 02/15/23 02/16/23 02/17/23 11:59 11:59 11:59 11:59 Weight 232 lb 15.999 oz Constitutional Constitutional: no acute distress *Routine HEENT Exam Head: Present normocephalic Eye: Present EOMI and PERRL ENT: Present mucous membranes moist *Routine Neck Exam Neck: Present supple; Absent lymphadenopathy *Routine Respiratory Exam Respiratory: Present CTA bilaterally *Routine Cardiovascular Exam Cardiovascular: Present RRR *Routine Abdominal Exam Abdominal: Present soft and normoactive bowel sounds; Absent tenderness *Routine Rectal Exam Rectal:: deferred *Routine Genitalia Exam Genitalia:: deferred *Routine Extremities Exam Extremities: Absent cyanosis, clubbing or edema *Routine Skin Exam Skin: Present warm; Absent rash *Routine Neurological Exam Neurological: Present alert and oriented X3 Assessment and Plan *Assessment and plan (1) Large for gestational age fetus affecting management of mother: Status: Acute Qualifiers: Fetus number: single or unspecified fetus Trimester: third trimester Qualified Code(s): O36.63X0 - Maternal care for excessive valerie
[2023-02-17 11:34] LABS: Microscopic, Urine URINE MICROSCOPIC (MICROSCOPIC)
[2023-02-17 11:39] LABS: Appearance,Urine Cloudy (Clear); Basophils % 0.3 % (0.1-2.0); Bilirubin,Urine Negative (Negative); Blood, Urine 2+ (Negative); Color,Urine Dark Yellow (Yellow); Eosinophils # 0.1 K/mm3 (0.0-0.4); Eosinophils % 1.1 % (0.1-12.0); Glucose,Urine (UA) Negative (Negative); Hematocrit 36.6 % (37.0-47.0); Hemoglobin 12.7 g/dL (12.2-16.2); Ketones,Urine Negative (Negative); Leukocyte Esterase,Urine 1+ (Negative); Lymphocytes # 1.6 K/mm3 (0.7-4.5); Lymphocytes % 14.6 % (10-50); Mean Corpuscular HGB Conc 34.8 g/dL (31.8-35.4); Mean Corpuscular Hemoglobin 30.3 pg (27.0-31.2); Mean Platelet Volume 9.4 fl (7.4-10.4); Monocytes # 0.6 K/mm3 (0.1-1.0); Monocytes % 5.3 % (1.7-9.3); Neutrophils # 8.7 K/mm3 (1.8-7.8); Neutrophils % 78.7 % (37.0-80.0); Nitrate,Urine Negative (Negative); Platelet Count 206 K/mm3 (142-424); Protein,Urine 1+ (Negative); Urobilinogen,Urine 0.2 EU/dl (0.2)
[2023-02-17 11:49] LABS: Amphetamine/Metha Screen,Urine Negative ng/ml (<1000); Barbiturates Screen,Urine Negative ng/ml (<200)
[2023-02-17 11:50] LABS: Benzodiazepines Screen,Urine Negative ng/ml (<200); Cannabinoid Screen,Urine Negative ng/ml (<50)
[2023-02-17 11:51] LABS: D-Dimer 1.01 ug/mL (0.0-0.5); Methadone Screen,Urine Negative ng/ml (<300)
[2023-02-17 11:52] LABS: Cocaine Screen,Urine Negative ng/ml (<300); Phencyclidine Screen,Urine Negative ng/ml (<25)
[2023-02-17 11:53] LABS: Opiate Screen,Urine Negative ng/ml (<300)
[2023-02-17 12:02] LABS: Bacteria,Urine Trace /lpf; Mucus,Urine Trace /lpf
[2023-02-17 12:03] LABS: Uric Acid 4.4 mg/dl (2.5-6.2)
[2023-02-17 12:06] LABS: Anion Gap 8.9 mEq/L (5-15); Carbon Dioxide 23 mmol/L (22.0-30.0); Chloride 108 mmol/L (98-107); Potassium 3.9 mmoL/L (3.5-5.1); Sodium 136 mmol/L (136-145)
[2023-02-17 12:07] LABS: Activated Partial Thrombo Time 25.6 seconds (22.8-30.6); Alanine Aminotransferase 22 U/L (12-78); Aspartate Amino Transferase 27 U/L (14-36); Calcium 8.8 mg/dl (8.4-10.2); Creatinine Clearance Estimated 158 mL/min (50-200); Estimated Glomerular Filt Rate 179 ml/min (>60); Fibrinogen 525 mg/dL (229.9-363.5); GFR (African American) 216 ML/MIN (>60); Glucose 72 mg/dl (74-100); Prothrombin Time 9.8 seconds (10.1-12.5)
[2023-02-17 12:08] LABS: Blood Urea Nitrogen 8 mg/dl (7-17)
--- NOTE | 2023-02-17 14:52 | EXP.OP.NOTE ---
Date of procedure: 02/17/23 Pre-op Diagnosis:: Large for gestational age, desire for sterilization, -induced hypertension, advanced maternal age Post-op Diagnosis:: Large for gestational age, desire for sterilization, -induced hypertension, advanced maternal age Procedure performed:: Primary lower segment transverse section bilateral soft rectum Surgeon:: Shaw Fontenot MD Head Waiter(s):: Dr. Ceballos LEGAL SUMMER INTERN:: Uche Casey Anesthesia: spinal Estimated blood loss (mL): 800 Clinical Note:: She is a 37-year-old 2 para 1 at 37 and 5 weeks gestational age. She has been followed for increased blood pressure in this . She has chronic hypertension. Her blood pressures today were found to be 160s over 90s and since she was 37 weeks and 5 days we elected to go ahead and deliver her. Her last ultrasound showed that the baby weighed 8 pounds 6 ounces and was greater than the 99th centile. As result of that she was offered primary lower segment transverse section for her large for gestational age infant. She also expressed desire for sterilization. The risks and benefits of surgery were discussed with the patient and her prior to surgery. Operative findings:: She delivered a liveborn male child at 2:18 PM in the afternoon of February 17, 2023. The baby had Apgars of 8 at 1 minute and 9 at 5 minutes. She did have multiple fibroids in her uterus. Posteriorly there was a 6 cm pedunculated fibroid. There was 2 other smaller 2 cm fibroids that were subserosal on the fundus of the uterus. Ovaries and tubes appeared normal. Operative note:: She was taken to the operating room where spinal anesthesia was found be adequate. She was prepped and draped in normal sterile fashion in the supine position with a leftward tilt. A Turner catheter was in the bladder. A Pfannenstiel skin incision was made with knife then carried through to the underlying layer of fascia with cautery. The fascia was opened in the midline with cautery and extended laterally using Pillai scissors. Bre clamps were applied to the superior aspect of the fascial incision which was tented up and the underlying rectus muscles dissected off using cautery. The Bre clamps were then applied to the inferior aspect of the fascial incision which in a similar fashion was tented up and the underlying rectus muscles dissected off using cautery. The rectus muscles were then in the midline, the peritoneum identified, and entered sharply with Metzenbaum scissors. This incision was then extended superiorly and inferiorly with cautery. We had good visualization of the bladder inferiorly. An Abhay retractor was placed within the abdominal cavity. The bladder peritoneum was then opened in the midline and extended laterally using Metzenbaum scissors. A bladder flap was created digitally. Transverse incision was made through the uterine muscle to the amnion. This incision was then extended laterally using fingers as traction. The amnion was entered sharply with knife. There was clear amniotic fluid. The infant's head was then delivered atraumatically. There was a loose nuchal cord that was easily reduced. This was followed by the anterior shoulder and the rest of the infant's body atraumatically. The oropharynx and nasopharynx were bulb suctioned. The infant was then handed off to Dr. Brown who assigned Apgars of 8 at 1 minute and 9 at 5 minutes. We then obtained cord blood as well as cord pH. The pH was 7.37. Using gentle traction on the cord and countertraction on the fundus I was able to easily deliver the placenta intact. It had a normal three-vessel cord. The uterus was then cleared of clots and debris. The uterine incision was then closed using running 0 Vicryl suture in a locked fashion. A second layer of the same suture was used to imbricate the first layer. The bladder peritoneum was then closed using running 2-0 Vicryl suture in a locked fashion. T
--- NOTE | 2023-02-17 15:04 | EXP.ANES.CKL ---
[facility] Disclaimer: The information contained in this section may have been updated after the patient was seen, as this information can be updated by other users. Medical History (Reviewed 02/17/23 @ 11: by Shaw Fontenot MD) Advanced maternal age affecting , antepartum Gestational hypertension Surgical History (Reviewed 02/17/23 @ 11: by Shaw Fontenot MD) Hx of elbow surgery Family History (Reviewed 02/17/23 @ : by Shaw Fontenot MD) Diabetes Coronary artery disease Hyperlipidemia Heart attack Cancer Hypertension Social History (Reviewed 02/17/23 @ 11: by Shaw Fontenot MD) Smoking Status: Never smoker alcohol intake: never substance use type: denies use current occupational status: employed Travel in the last 8 weeks: None housing: house [facility] Anesthesia Checklist Patient Identification Patient Identification: Verbal (Name & ) Structural Data Admitted From: Inpatient Planned Operative Procedure/s: c/section Consent for Planned Operative Procedure(s) Verified: Yes Airway Assessment Mallampati Score:: Class I C-Spine Mobility Assessed: Yes TMJ Mobility Assessed: Yes Dentition: Good Dentition Neurological Assessment Level of Consciousness: Awake, Alert and Appropriate Anesthesia Plan Anesthesia Risk discussed: Yes Anesthesia Plan: Verified ASA Class: II Anesthesia Type: Spinal
--- NOTE | 2023-02-17 15:05 | P.PNANES_ITS ---
[facility] Anesthesia Record Part I Anesthesia Record I Intake, IV Amount: 1,600 Hydration: Adequate Estimated blood loss (mL): 800 Urine output (mL): 200 Blood Pressure: 140/81 SaO2: 98 Pulse Rate: 87 Airway Patency: Patent Respiratory Rate: 12 Temperature: 97.5 F Patient is:: Awake and Stable Stable to PACU at:: 15:00
--- NOTE | 2023-02-17 16:06 | SUR.OPER ---
1418- Viable infant male born at this time MD Fontenot stated he didn't want a cord pH
[2023-02-17 16:49] LABS: Microscopic,Cath URINE MICROSCOPIC (MICROSCOPIC)
[2023-02-17 17:29] LABS: Appearance,Urine/Cath CLEAR (Clear); Bilirubin,Cath Negative (Negative); Blood, Urine/Cath Negative (Negative); Color,Urine/Cath YELLOW (Yellow); Glucose,Urine/Cath (UA) Negative (Negative); Ketones,Urine/Cath 1+ (Negative); Leukocyte Esterase,Cath Negative (Negative); Nitrate,Cath Negative (Negative); Protein,Urine/Cath Negative (Negative); Urobilinogen,Cath 0.2 EU/dl (0.2)
[2023-02-17 17:54] LABS: WBC,Urine/Cath Occasional #/hpf (0-3)
[2023-02-18] VITALS (8 sets, daily range): BP systolic 121–176; BP diastolic 62–82; PULSE 81–104; RESP 17–18; TEMP 36.4–36.9; O2SAT 95–100
[2023-02-18 06:26] LABS: Basophils % 0.3 % (0.1-2.0); Eosinophils # 0.1 K/mm3 (0.0-0.4); Lymphocytes # 1.7 K/mm3 (0.7-4.5); Red Cell Distribution Width 15.3 % (11.5-17.5)
[2023-02-18 06:35] LABS: Eosinophils % 0.6 % (0.1-12.0); Hematocrit 31.5 % (37.0-47.0); Hemoglobin 10.6 g/dL (12.2-16.2); Lymphocytes % 14.7 % (10-50); Mean Corpuscular HGB Conc 33.8 g/dL (31.8-35.4); Mean Corpuscular Hemoglobin 29.8 pg (27.0-31.2); Mean Platelet Volume 8.8 fl (7.4-10.4); Monocytes # 0.8 K/mm3 (0.1-1.0); Monocytes % 6.5 % (1.7-9.3); Neutrophils # 9.2 K/mm3 (1.8-7.8); Neutrophils % 77.8 % (37.0-80.0); Platelet Count 201 K/mm3 (142-424); Red Blood Count 3.58 M/mm3 (4.20-5.40); White Blood Count 11.8 K/mm3 (4.8-10.8)
--- NOTE | 2023-02-18 10:17 | EXP.OB.SPCS ---
OB - PN: Subj Interval history: Irena Rosario is a 37yo POD#1 from a repeat CD and BSG at 37w5d. complicated by chronic hypertension and LGA. No complications during delivery. She is doing well. Reports lochia is scant. She is ambulating, tolerating PO, voiding, and passing flatus. She had a shower this morning and did well with that, denies any lightheadedness or problems. Denies dysuria. reports pain is controlled with PO regimen. mild incision pain and cramping uterine pain. Patient comments: no complaints, pain well controlled, tolerating diet and flatus present [place] baby status: doing well OB - PN: Obj Exam Vital signs: Temp Pulse Resp BP Pulse Ox O2 Del Method 98.3 F 104 H 18 121/75 98 Room Air 02/18/23 08:29 02/18/23 08:29 02/18/23 08:29 02/18/23 08:29 02/18/23 08:29 02/18/23 08:29 Narrative: General: patient is alert oriented in no acute distress and responds appropriately to questions. Appears to be in minimal pain. resting in bed and doing well HEENT: NCAT, EOMI, moist mucous membranes, neck supple with full ROM Cardiovascular: RRR +S1/S2, no murmurs or rubs Pulmonary: Clear to auscultation bilaterally, nonlabored breathing, symmetric chest rise Abdominal: Fundus below the umbilicus, firm, and tenderness appropriate for the period. Extremities: trace edema, no tenderness or cyanosis noted Skin: Normal turgor, intact, warm.? Negative for erythema, pallor, petechia, or lesions Neurologic: Negative for sensory or motor deficit Psychiatric: Normal affect, normal thought process, good judgment and insight, no depression or anxious mood appreciated. Incision site: Mildly tender.? No oozing, bleeding, erythema, drainage or signs of infection appreciated OB - PN: Obj Data Labs 02/18/23 06:17 02/17/23 11:16 Labs: Laboratory Results - last 24 hr 02/17/23 11:16: WBC 11.0 H, RBC 4.20, Hgb 12.7, Hct 36.6 L, MCV 87.0, MCH 30.3, MCHC 34.8, RDW 15.0, Plt Count 206, MPV 9.4, Neut % (Auto) 78.7, Lymph % (Auto) 14.6, [place] % (Auto) 5.3, Eos % (Auto) 1.1, Baso % (Auto) 0.3, Neut # (Auto) 8.7 H, Lymph # (Auto) 1.6, [place] # (Auto) 0.6, Eos # (Auto) 0.1, Baso # (Auto) 0.0, PT 9.8 L, INR 0.90, APTT 25.6, Fibrinogen 525 H, D-Dimer 1.01 H, Sodium 136, Potassium 3.9, Chloride 108 H, Carbon Dioxide 23, Anion Gap 8.9, BUN 8, Creatinine 0.40 L, Estimated Creat Clear 158, Estimated GFR 179, Est GFR ( Amer) 216, Glucose 72 L, Uric Acid 4.4, Calcium 8.8, AST 27, ALT 22, Urine Color Dark yellow, Urine Appearance Cloudy, Urine pH 7.0, Ur Specific [place] 1.020, Urine Protein 1+, Urine Glucose (UA) Negative, Urine Ketones Negative, Urine Blood 2+, Urine Nitrate Negative, Urine Bilirubin Negative, Urine Urobilinogen 0.2, Ur Leukocyte Esterase 1+ A, Urine RBC 10-20, Urine WBC 3-5, Ur Squamous Epith Cells 5-10, Urine Bacteria Trace, Urine Mucus Trace, Urine Opiates Screen Negative, Urine Methadone Screen Negative, Ur Barbituates Screen Negative, Ur Phencyclidine Scrn Negative, Ur Amphetamines Screen Negative, U Benzodiazepines Scrn Negative, Urine Cocaine Screen Negative, U Marijuana (THC) Screen Negative, Blood Type O Positive, Antibody Screen Negative 02/17/23 14:05: Urine Color Yellow, Urine Appearance Clear, Urine pH 7.0, Ur Specific [place] 1.010, Urine Protein Negative, Urine Glucose (UA) Negative, Urine Ketones 1+, Urine Blood Negative, Urine Nitrate Negative, Urine Bilirubin Negative, Urine Urobilinogen 0.2, Ur Leukocyte Esterase Negative, Urine RBC None, Urine WBC Occasional, Ur Squamous Epith Cells 3-5, Urine Bacteria None 02/18/23 06:17: WBC 11.8 H, RBC 3.58 L, Hgb 10.6 L D, Hct 31.5 L, MCV 88.0, MCH 29.8, MCHC 33.8, RDW 15.3, Plt Count 201, MPV 8.8, Neut % (Auto) 77.8, Lymph % (Auto) 14.7, [place] % (Auto) 6.5, Eos % (Auto) 0.6, Baso % (Auto) 0.3, Neut # (Auto) 9.2 H, Lymph # (Auto) 1.7, [place] # (Auto) 0.8, Eos # (Auto) 0.1, Baso # (Auto) 0.0 OB - PN: A/P (1) Large for gestational
--- NOTE | 2023-02-18 20:12 | P.PNANES_ITS ---
[facility] Anesthesia Record Part II Anesthesia Record Part II Discharge Time: 15:29 Destination: Obstetric PACU nurse assessment reviewed?: Yes Patient Condition:: Good Anesthesia Complications:: None Swallowing reflex intact?: Yes Airway Patency: Patent Cyanosis?: No Blood Pressure: 143/80 SaO2: 100 Respiratory Rate: 17 Pulse Rate: 97 Temperature: 97.5 F Mental Status: Alert & Oriented Pain level:: 0 Nausea and/or vomitting:: None Intake, IV Amount: 0 Hydration: Adequate
[2023-02-19] VITALS (11 sets, daily range): BP systolic 123–153; BP diastolic 59–81; PULSE 83–104; RESP 17–18; TEMP 36.7–36.9; O2SAT 97–99
[2023-02-19 03:39] LABS: Magnesium 3.5 mg/dl (1.6-2.3)
[2023-02-19 11:47] LABS: Magnesium 4.3 mg/dl (1.6-2.3)
--- NOTE | 2023-02-19 11:47 | EXP.ACUTE.PN ---
Subjective *Date: 02/19/23 *Time: 11:47 Interval history: POD # 2 s/p PLTCS Feeling okay this morning. Mag sulfate was started last night at 2300 for severe range blood pressures. Pain controlled. She is breast and formula feeding. She is taking Procardia 60 PO daily. Voiding without difficulty and passing flatus. Tolerating regular diet. Denies headaches, vision changes, RUQ pain. No lightheadedness or dizziness. Denies fever/chills, chest pain and shortness of breath. Medical Exam Vital signs and Labs for Last 24 Hours: Vital Signs Temp Pulse Pulse Resp BP BP Pulse Ox 02/19/23 05:10 98 H 143/70 H 02/19/23 04:24 98.4 F 95 H 17 153/77 H 97 02/19/23 03:10 83 133/63 02/19/23 02:09 86 138/63 02/19/23 01:54 84 17 137/61 02/19/23 00:40 86 123/59 L 02/19/23 01:15 88 152/70 H 02/19/23 00:10 98.2 F 93 H 18 148/70 H 02/18/23 22:35 150/80 H 02/18/23 22:05 158/80 H 02/18/23 22:00 87 168/81 H 02/18/23 20:10 98.5 F 81 18 176/82 H 97 02/18/23 15:28 98.1 F 82 17 150/80 H 95 02/18/23 20:13 17 O2 Del Method 02/19/23 05:10 02/19/23 04:24 Room Air 02/19/23 03:10 02/19/23 02:09 02/19/23 01:54 02/19/23 00:40 02/19/23 01:15 02/19/23 00:10 02/18/23 22:35 02/18/23 22:05 02/18/23 22:00 02/18/23 20:10 Room Air 02/18/23 15:28 Room Air 02/18/23 20:13 Intake and Output 02/18/23 02/19/23 02/19/23 23:59 07:59 15:59 Intake Total 0 / 0 1041 / 1041 Output Total 1900 / 1900 Balance 0 / 0 -859 / -859 Intake: Intake, Total IV Amount 0 / 0 Infusion Intake 1041 / 1041 Lactated Ringers 1000ML 1,000 661 / 661 ml @ 100 mls/hr IV .Q10H NATALYA Rx #:[id number] Magnesium Sulfate in Water 20 380 / 380 gm In 500 ml @ 2 GM/HR 50 mls/ hr IV .Q10H NATALYA Rx#:[id number] Output: Output, Urine Amount 1900 / 1900 Laboratory Results - last 24 hr 02/19/23 03:25: Magnesium 3.5 H I & O for Labs for Last 24 Hours: Intake & Output 02/16/23 02/17/23 02/18/23 02/19/23 23:59 23:59 23:59 23:59 Intake Total 1600 / 1600 0 / 0 1041 / 1041 Output Total 1900 / 1900 Balance 1600 / 1600 0 / 0 -859 / -859 Weight 233 lb Microbiology Reports for the Last 24 Hours: Microbiology 02/17/23 11:16 Urine,Clean Catch Urine Culture - Final Head: Present atraumatic and normocephalic ENT: Present normal exam and mucous membranes moist Neck: Present full ROM Respiratory: Present CTA bilaterally and normal respiratory effort Cardiac: Present Reg Rate and Rhythm GI: Present soft, distention, tenderness and normal bowel sounds Comments:: Uterine fundus firm and below umbilicus, pfannenstiel incision clean/dry/intact Rectal (female): Present deferred (female): Present deferred Extremities: Present full ROM Neuro: Present alert, awake, oriented x 3 and moves all extremities Assessment and Plan *Assessment and plan (1) 37 weeks gestation of : Status: Acute Category: Medical Code(s): Z3A.37 - 37 weeks gestation of (2) S/P : Status: Acute Category: Surgical Code(s): Z98.891 - History of uterine scar from previous surgery (3) Gestational hypertension: Status: Acute Qualifiers: Trimester: third trimester Qualified Code(s): O13.3 - Gestational [-induced] hypertension without significant proteinuria, third trimester Category: Medical Code(s): O13.9 - Gestational [-induced] hypertension without significant proteinuria, unspecified trimester (4) Large for gestational age fetus affecting management of mother: Status: Acute Qualifiers: Fetus number: single or unspecified fetus Trimester: third trimester Qualified Code(s): O36.63X0 - Maternal care for excessive growth, third trimester, not applicable or unspecified Category:
[2023-02-19 17:06] LABS: Magnesium 4.4 mg/dl (1.6-2.3)
[2023-02-20 04:12] VITALS: BP 156/72; PULSE 86; RESP 18; TEMP 36.9; O2SAT 97
[2023-02-20 08:10] VITALS: BP 156/83; PULSE 86; RESP 16; TEMP 36.9; O2SAT 98
--- NOTE | 2023-02-20 09:58 | EXP.DC.SUM ---
General Admission date:: 23 Discharge date: 02/20/23 HPI HPI HPI: POD # 3 s/p PLTCS Feeling well this morning. Mag sulfate d/c'd at 2300 on 23 after 24 hours. Pain controlled. She is breast and formula feeding. She is taking Procardia 60 PO daily. Voiding without difficulty and passing flatus. Tolerating regular diet. Denies headaches, vision changes, RUQ pain. No lightheadedness or dizziness. Denies fever/chills, chest pain and shortness of breath. Ambulating well ad cipriano. Hospital Course Hospital Course Hospital Course: Mrs Irena Ferguson is a 37-year-old 2 para 1 at 37 and 5 weeks gestational age admitted to [facility] for scheduled primary . She has been followed for chronic hypertension and her blood pressures have increased. She hasd proteinuria and significant pedal edema. She was taking nifedipine 60 mg for her increased blood pressure. Recent ultrasound showed that her baby was extremely large for gestational age. 2 weeks ago it was 8 pounds 6 ounces. Baby's size was discussed and she elected for a primary section. She also expressed desire for sterilization. She underwent primar low transverse section on 10. She delivered a live baby boy, Enrique, weighing 9 lb 7 0z with APGARs 9, 9. EBL 800. On POD #1 she had severe range and mild BP. Mag sulfate was started and continued for 24 hours. Mag sulfate was discontinued on POD # 2 at 2300. Procardia 60 mg PO daily was continued. Pain was controlled. Breast and formula feeding. She was voiding without difficulty and passing flatus. Tolerating regular diet. Denied headaches, vision changes, RUQ pain. No lightheadedness or dizziness. Denies fever/chills, chest pain and shortness of breath. BP mild range, remainder of vitals stable, afebrile. Heart regular rate and rhythm. Lungs clear to auscultation. Abdomen soft, nontender. She had bilateral lower extremity edema. No calf tenderness to palpation. Discharged home on POD # 3 with instructions to follow-up in the office in 3 days for BP check. Exam Data for Last 24 hours Vital signs and Labs for Last 24 Hours: Temp Pulse Resp BP Pulse Ox O2 Del Method 98.4 F 86 18 156/72 H 97 Room Air 02/20/23 04:12 02/20/23 04:12 02/20/23 04:12 02/20/23 04:12 02/20/23 04:12 02/20/23 04:12 Laboratory Results - last 24 hr 02/19/23 11:31: Magnesium 4.3 H D 02/19/23 16:35: Magnesium 4.4 H 02/19/23 19:37: Magnesium 5.0 H D I & O for Last 24 hours: Intake & Output 02/17/23 02/18/23 02/19/23 02/20/23 23:59 23:59 23:59 23:59 Intake Total 1600 / 1600 0 / 0 1593 / 1593 Output Total 5375 / 5375 Balance 1600 / 1600 0 / 0 -3782 / -3782 Weight 233 lb Microbiology Reports for the Last 24 Hours: Microbiology 02/17/23 11:16 Urine,Clean Catch Urine Culture - Final Constitutional Constitutional: no acute distress and cooperative *Routine HEENT Exam Head: Present normocephalic and atraumatic Eye: Absent conjunctivae pink ENT: Present mucous membranes moist and dentition normal *Routine Neck Exam Neck: Present full ROM *Routine Respiratory Exam Respiratory: Present CTA bilaterally and normal respiratory effort *Routine Cardiovascular Exam Cardiovascular: Present RRR *Routine Abdominal Exam Abdominal: Present soft and normoactive bowel sounds; Absent tenderness or distended Comments: Uterine fundus firm and below umbilicus; Pfannenstiel incision cleand/ry/intact *Routine Rectal Exam Patient deferred: visual exam *Routine Exam Patient deferred: external exam *Routine Extremities Exam Extremities: Present edema (+2 bilateral lower extremity edema ) and full ROM; Absent calf tenderness *Routine Neurological Exam Neurological: Present alert, oriented X3 and moving all extremities Routine Psychiatric Exam Psychiatric: Present normal affect and cooperative Results Data Completed and Pending Labs on day of discharge: Labs from last 24 hours 02/19/2301/31
== END 2023-02-20 11:35 | disposition home or self-care (01) | DRG 784 ==
LOC: OBOUT 10:26 → OB 10:26
PROVIDERS: Obstetrics & Gynecology; Admitting Provider Nurse Practitioner Obstetrics & Gynecology; PCP Nurse Practitioner Family; Visit Provider Nurse Practitioner Obstetrics & Gynecology
PROC: 0UL70ZZ Occlusion of Bilateral Fallopian Tubes, Open Approach (ICD-10-PCS; CPT 59514; principal; 2023-02-17 14:00)
DX: O69.81X0 Labor and delivery complicated by cord around neck, without compression, not applicable or unspecified (principal); O10.92 Unspecified pre-existing hypertension complicating childbirth; O13.4 Gestational [pregnancy-induced] hypertension without significant proteinuria, complicating childbirth; Z3A.37 37 weeks gestation of pregnancy; Z37.0 Single live birth; O90.81 Anemia of the puerperium; D64.9 Anemia, unspecified; Z23 Encounter for immunization; Z30.2 Encounter for sterilization; O36.63X0 Maternal care for excessive fetal growth, third trimester, not applicable or unspecified
CPT/HCPCS: 59514; 58611; 36415; 59025; 80048; 80305; 81001; 83735; 84450; 84460; 84550; 85025; 85378; 85384; 85610; 85730; 86850; 87086; 96374

== ENCOUNTER 2024-09-05 07:59 | Outpatient (CLI) | payer OTHER, SELFPAY ==
--- NOTE | 2024-09-05 08:45 | US_ITS ---
PROCEDURE: US TRANSVAGINAL CLINICAL INDICATION: first available appt, [facility] COMPARISON: No exams were available for comparison FINDINGS: Transvaginal sonographic images of the pelvis were obtained. UTERUS: 9.3cm x 6.0cmx 4.9 cm anteverted with a combined endometrial thickness of 10.1mm. There are nabothian cysts in the cervix. There appears to be a polyp within the posterior endometrium that measures 0.5 cm x 0.4 cm. Fibroid 1. Posterior fibroid adjacent to and impinging upon the endometrium that measures 1.0 cm x 0.7 cm x 0.7 cm. Fibroid 2. Is located on the left side within the myometrium and measures 2.2 cm x 2.3 cm x 2.1 cm. Fibroid 3. Located posteriorly on the serosa measuring 3.0 cm x 2.4 cm x 1.9 cm. Fibroid 4. Posteriorly measuring 1.4 cm x 0.8 cm x 1.3 cm LEFT OVARY: 3.0cmx2.4cmx2.1cm with a volume of 7.8ml. RIGHT OVARY: 4.3cmx 2.7 cmx2.8 cm with a volume of 16.9ml. There appears to be a corpus luteum in the right ovary measuring 2.2 cm x 1.8 cm x 1.9 cm. There are several small peripheral follicles in the right ovary. Both ovaries are seen and appear normal. Doppler flow to both ovaries are seen. There is no fluid in the cul-de-sac. IMPRESSION: 1. Anteverted, bulky uterus. There are at least 4 fibroids within the uterus. The largest measures 3.0 cm. 2. The endometrium appears normal but there appears to be a 0.5 cm polyp within the endometrial cavity. 3. The left ovary contains a small follicle. The right ovary has a follicle with internal debris that may be a corpus luteum. 4. No fluid in the cul-de-sac. Dictated by: Shaw Fontenot MD 09/05/2024 12:13 Shaw Fontenot MD in OV 09/05/2024 12:13
== END 2024-09-05 23:59 | disposition home or self-care (01) ==
LOC: RAD 08:00
PROVIDERS: PCP Nurse Practitioner Family; Visit Provider Obstetrics & Gynecology
DX: N92.6 Irregular menstruation, unspecified (principal); D25.9 Leiomyoma of uterus, unspecified; R03.0 Elevated blood-pressure reading, without diagnosis of hypertension
CPT/HCPCS: 76830

== ENCOUNTER 2024-12-11 11:52 | Outpatient (CLI) | payer OTHER, SELFPAY ==
[2024-12-11 09:08] VITALS: BMI 39.8
--- OUTSIDE RECORDS SUMMARY | 2024-12-11 11:54 | XMS_ITS | Clinical Summary ---
[facility] Address [address] [place] [address] Care Team Providers Care Threat Monitoring Analyst Name Role Phone Rosalba Castellanos APRN Primary Care Provider Allergies Active Allergy Reactions Criticality Noted Date Comments Clarithromycin Nausea And Vomiting Low 10/20/2022 Cefaclor Irritability Low 10/20/2022 Medications Vit-Fe Fumarate-FA ( vitamin 27-0.8) 27-0.8 MG tablet tablet Take by mouth Daily. Active cetirizine (zyrTEC) 10 MG tablet Take 1 tablet by mouth Daily. Active NIFEdipine XL (PROCARDIA XL) 60 MG 24 hr tablet Take 1 tablet by mouth Daily. Active Active Problems Problem Noted Date Diagnosed Date Maternal chronic hypertension in third trimester 01/13/2023 01/13/2023 Multigravida of advanced maternal age in third t rimester 01/13/2023 Morbid obesity with BMI of 40.0-44.9, adult 12/31 Social History Tobacco Use Types Packs/Day Years Used Date Smoking Tobacco: Never Smokeless Tobacco: Never Alcohol Use Standard Drinks/Week Comments Not Currently 0 (1 standard drink = 0.6 oz pur e alcohol) Abuse Screen Answer Date Recorded Unsafe at Home or Work/School Not on file Feels Threatened by Someone? Not on file Does Anyone Keep You from Co ntacting Others or Doint Things Outside the Home? Not on file 02/11/2023 Physical Sign of Abuse Present Not on file 1 Housing Stability Answer Date Recorded Current Living Arrangements Not on file 01/30 Potentially Unsafe Housing Conditions Not on jia e 02/11/2023 Family and Community Support Answer Chirag e Recorded Help with Day-to-Day Activities Not on file 02/11/2023 Lonely or Isolated Not on file 02/11/2023 Employment Answer Date Recorded Do you want help finding or keeping work or a malaika b? Not on file 02/11/2023 Disabilities Answer Date Recorded Concentrating, Remembering, or Making Decisions Difficulty Not on file 02/11/2023 Doing Errands Independently Difficulty Not on fi le 02/11/2023 Education Answer Date Recorded Help with school or training? Not on file Preferred Language Not on file 02/11/2023 Comments No Sex and Gender Information Value Date Recorded Sex Assigned at Not on file Legal Sex Female 12:05 PM EDT Gender Identity Not on file Sexual Orientation Not on file Last Filed Vital Signs Vital Sign Reading Time Taken Comments Blood Pressure 133/65 01/13/2023 1:23 PM EDT Pulse - - Temperature - - Respiratory Rate - - Oxygen Saturation - - Inhaled Oxygen Concentration - - Weight 104 kg (228 lb 9.6 oz) 01/13/2023 1:20 PM EDT Height 160 cm (5' 3 ) 10/20/2022 11:29 AM EDT Body Mass Index 40.49 10/20/2022 11:29 AM EDT Plan of Treatment Health Maintenance Due Date Last Done Comments Annual Gynecologic Pelvic an d Breast Exam 1984 TDAP/TD VACCINES (1 - Tdap) 09/13/2003 ANNUAL PHYSICAL 09/22/2022 HEPATITIS C SCREENING 09/22/2022 COVID-19 Vaccine (3 - 2023-2 5 season) 2024 04/17/2021, 03/17/2021 MAMMOGRAM 2024 INFLUENZA VACCINE 01/30/2025 Pneumococcal Vaccine 0-49 Aged Out No longer eligible based on patient's age to complete this topic Insurance [facility] Care Teams Threat Monitoring Analyst Relationship Specialty Start Date End Date Rosalba Castellanos APRN PCP - General Internal Medicine 09/22/22
--- NOTE | 2024-12-11 12:17 | ECG_ITS ---
APPROVED REPORT Exam: Resting ECG HR:76 bpm ECG Measurements Heart Rate 76 AXES FL 174 P 59 QRSd 106 QRS 77 QT 385 T 28 QTc 416 Conclusion SINUS RHYTHM NORMAL ECG UNCONFIRMED REPORT Electronically signed by : Domingo Fagan MD 12/11/2024 19:03:45
[2024-12-11 12:24] LABS: Hematocrit 39.3 % (37.0-47.0); Hemoglobin 12.7 g/dL (12.2-16.2); Immature Granulocytes % 0.3 %; Mean Corpuscular HGB Conc 32.3 g/dL (31.8-35.4); Mean Corpuscular Hemoglobin 28.5 pg (27.0-31.2); Mean Corpuscular Volume 88.3 fl (81-99); Nucleated Red Blood Cells % 0 %; Platelet Count 333 K/mm3 (142-424); Red Blood Count 4.45 M/mm3 (4.20-5.40); Red Cell Distribution Width-SD 42.6 fL; White Blood Count 7.3 K/mm3 (4.8-10.8)
[2024-12-11 12:33] LABS: Chloride 103 mmol/L (98-107); Potassium 4.2 mmoL/L (3.5-5.1); Sodium 138 mmol/L (136-145)
[2024-12-11 12:36] LABS: Anion Gap 13.2 mEq/L (5-15); Blood Urea Nitrogen 12 mg/dl (7-17); Calcium 9.1 mg/dl (8.4-10.2); Carbon Dioxide 26 mmol/L (22.0-30.0); Creatinine Clearance Estimated 201 mL/min (50-200); Creatinine,Serum 0.60 mg/dl (0.52-1.04); Estimated Glomerular Filt Rate 111 ml/min (>60); GFR (African American) 134 ML/MIN (>60); Glucose 100 mg/dl (74-100)
[2024-12-11 13:43] LABS: HCG Qualitative, Serum Negative (Negative)
== END 2024-12-11 23:59 | disposition home or self-care (01) ==
LOC: PREOP 11:53
PROVIDERS: PCP Nurse Practitioner Family; Visit Provider Obstetrics & Gynecology
DX: Z01.810 Encounter for preprocedural cardiovascular examination (principal); Z01.812 Encounter for preprocedural laboratory examination
CPT/HCPCS: 80048; 84703; 85025; 93005

== ENCOUNTER 2024-12-18 06:07 | Inpatient (IN) | payer OTHER, SELFPAY ==
[2024-12-11 14:14] VITALS: BMI 39.8
[2024-12-18] VITALS (24 sets, daily range): BP systolic 124–173; BP diastolic 60–95; PULSE 84–109; RESP 12–20; TEMP 36.6–38; O2SAT 92–98; BMI 39.8
[2024-12-18] MEDS: LACTATED RINGERS 1000ML 1,000 ML 25 ML IV (06:35)
[2024-12-18] MEDS: ACETAMINOPHEN 500MG TAB 1000 MG PO ×3 (06:36→18:55)
[2024-12-18] MEDS: GABAPENTIN 600MG TABLET 600 MG PO (06:39)
[2024-12-18] MEDS: CELECOXIB 100MG CAPSULE 400 MG PO (06:39)
--- NOTE | 2024-12-18 07:09 | P.PNANES_ITS ---
[facility] Disclaimer: The information contained in this section may have been updated after the patient was seen, as this information can be updated by other users. Medical History Elevated BP without diagnosis of hypertension Fibroid uterus Menorrhagia with irregular cycle Acute blood loss anemia 37 weeks gestation of Gestational hypertension Advanced maternal age affecting , antepartum Surgical History History of tubal ligation S/P with bilateral salpingectomy 02/17/23 Hx of elbow surgery Family History Other Cancer Coronary artery disease Diabetes Heart attack Hyperlipidemia Hypertension Social History (Updated 12/18/24 @ 06:16 by Debbie Quick RN) Smoking Status: Never smoker alcohol intake: never substance use type: denies use current occupational status: employed Travel in the last 8 weeks?: Inside the [facility] housing: house Have you lived/traveled outside US in past 30 days?: No Contact w/someone who lives/traveled outside US past 30 days?: No Exposure to someone with infectious disease in past 14 days?: No Do you have a fever (greater than 100.4 F or 38 C)?: No Have you tested positive for COVID-19?: No Exposed to someone with COVID-19 in past 14 days?: No Do you have a sore throat?: No Do you have a cough?: No Do you have any weakness?: No Are you experiencing any nausea/vomitting?: No Do you have any diarrhea?: No Are you experiencing any unusual bleeding?: No Do you have any muscle aches/pain?: No Do you have any abdominal pain?: No Are you experiencing loss of taste or smell?: No [facility] Anesthesia Checklist Patient Identification Patient Identification: Arm Band Structural Data Admitted From: Home Planned Operative Procedure/s: Total Abdominal Hysterectomy Consent for Planned Operative Procedure(s) Verified: Yes Verified Documents: Surgical Consent and History and Physical NPO Status Verified Time NPO: 00:00 Additional verifications Anesthesia Reactions: No Hx Blood Transfusions: No Blood Transfusion Reaction: No Airway Assessment Mallampati Score:: Class II C-Spine Mobility Assessed: Yes TMJ Mobility Assessed: Yes Dentition: Good Dentition Neurological Assessment Level of Consciousness: Awake, Alert and Appropriate Anesthesia Plan Anesthesia Risk discussed: Yes Anesthesia Plan: Verified ASA Class: II Anesthesia Type: General w/block (with Bilateral TAP block. Risks/benefits explained. Pt verbalized understanding)
[2024-12-18] MEDS: METRONIDAZ/SOD CHL 500 MG/100 ML PIGGYBACK 100 MG IV (07:17)
--- NOTE | 2024-12-18 07:19 | P.HP_ITS ---
History of Present Illness *Admission Date: 12/18/24 *Reason for visit:: heavy, irregular vaginal bleeding, fibroid uterus *History of present illness: Mrs Irena Rosario is a 39 yo P2003 who presents to [facility] for scheduled surgery. She complains of very heavy, irregular periods. History of uterine fibroids. History of bilateral salpingectomy with . History of x 1 and c- section x 1. Pelvic ultrasound 09/05/24 demonstrated 4 fibroids within the uterus, largest measures 3 cm. There also appears to be a polyp within the endometrial cavity. She desires definitive surgical intervention with hysterectomy. [facility] Disclaimer: The information contained in this section may have been updated after the patient was seen, as this information can be updated by other users. Medical History Elevated BP without diagnosis of hypertension Fibroid uterus Menorrhagia with irregular cycle Acute blood loss anemia 37 weeks gestation of Gestational hypertension Advanced maternal age affecting , antepartum Surgical History History of tubal ligation S/P with bilateral salpingectomy 02/17/23 Hx of elbow surgery Family History Other Cancer Coronary artery disease Diabetes Heart attack Hyperlipidemia Hypertension Social History (Updated 12/18/24 @ 06:16 by Debbie Quick RN) Smoking Status: Never smoker alcohol intake: never substance use type: denies use current occupational status: employed Travel in the last 8 weeks?: Inside the [place] housing: house Have you lived/traveled outside US in past 30 days?: No Contact w/someone who lives/traveled outside US past 30 days?: No Exposure to someone with infectious disease in past 14 days?: No Do you have a fever (greater than 100.4 F or 38 C)?: No Have you tested positive for COVID-19?: No Exposed to someone with COVID-19 in past 14 days?: No Do you have a sore throat?: No Do you have a cough?: No Do you have any weakness?: No Are you experiencing any nausea/vomitting?: No Do you have any diarrhea?: No Are you experiencing any unusual bleeding?: No Do you have any muscle aches/pain?: No Do you have any abdominal pain?: No Are you experiencing loss of taste or smell?: No Other Medical History Have you received the Flu Vaccine for this season: No Have you received the Pneumonia Vaccine: No Review of Systems Review of Systems Review of systems:: pertinent systems reviewed and negative unless documented below *Genitourinary Genitourinary: Reports abnormal vaginal bleeding and Reports menorrhagia Meds Home Medications and Allergies Home Medications ?Medication ?Instructions ?Recorded ?Confirmed ?Type cetirizine 10 mg tablet (Zyrtec) 10 mg PO DAILY PRN al angelito 09/03/24 12/18/24 History New Prescriptions to Start Prescriptions: Allergies Allergy/AdvReac Type Severity Reaction Status Date / Time cefaclor (From CECLOR) Allergy Unknown Other Verified 12/18/24 06:31 clarithromycin (From BIAXIN) Allergy Unknown Dizziness Verified 12/18/24 06:31 Exam Data for Last 24 hours Vital signs and Labs for Last 24 Hours: Temp Pulse Resp BP Pulse Ox O2 Del Method 97.8 F 103 H 18 173/89 H 96 Room Air 12/18/24 06:12 12/18/24 06:12 12/18/24 06:12 12/18/24 06:12 12/18/24 06:12 12/18/24 06:12 I & O for Last 24 hours: Intake & Output 12/15/24 12/16/24 12/17/24 12/18/24 23:59 23:59 23:59 23:59 Weight 225 lb Constitutional Constitutional: no acute distress and cooperative *Routine HEENT Exam Head: Present normocephalic and atraumatic Eye: Absent conjunctivae pink ENT: Present mucous membranes moist *Routine Neck Exam Neck: Present full ROM *Routine Respiratory Exam Respiratory: Present CTA bilaterally and normal respiratory effort *Routine Cardiovascular Exam Cardiovascular: Present RRR *Routine Abdominal Exam Abdominal: Present soft and normoactive bowel sounds; Absent tenderness or distended *Routine Rectal Exam Rectal:: deferred *Routine Genitalia Exam Genitalia:: normal female *Routine Extremities Exam Extremities: Present full ROM; Absent edema or calf tenderness *Routine Neurological Exam Neurological: Present alert, moving all extremities and normal speech Routine Psychiatric Exam Psychiatric: Present normal affect and cooperative Assessment and Plan *Assessment and plan (1) Menorrhagia with irregular cycle: Status: Acute Category: Medical Code(s): N92.1 - Excessive and frequent menstruation with irregular cycle (2) Fibroid uterus: Status: Acute Qualifiers: Uterine leiomyoma location: unspecified location Qualified Code(s): D25.9 - Leiomyoma of uterus, unspecified Category: Medical Code(s): D25.9 - Leiomyoma of uterus, unspecified (3) S/P : Problem Comment: with bilateral salpingectomy 02/17/23 Status: Acute Category: Surgical Code(s): Z98.891 - History of uterine scar from previous surgery Plan Reviewed risks, benefits, alternatives, expectations and possible complications of surgery. All questions addressed and answered Proceed with scheduled NAHED
--- NOTE | 2024-12-18 10:11 | P.OP_ITS ---
Date of procedure: 12/18/24 Pre-op Diagnosis:: 1. Abnormal uterine bleeding 2. Menorrhagia with irregular cycles 3. Uterine fibroids 4. History of bilateral salpingectomy at time of 5. Obesity, BMI 40.0 Post-op Diagnosis:: 1. Abnormal uterine bleeding 2. Menorrhagia with irregular cycles 3. Uterine fibroids 4. History of bilateral salpingectomy at time of 5. Obesity, BMI 40.0 Procedure performed:: Total Abdominal Hysterectomy Surgeon:: Nitza Mitchell DO Audiology Assistant(s):: Jyoti Ceballos DO WAITER/WAITRESS THIRD CLASS:: Ej Hussein Anesthesia: GETA Estimated blood loss (mL): 200 Clinical Note:: Mrs Irena Rosario is a 39 yo P2003 who presents to [facility] for scheduled surgery. She complains of very heavy, irregular periods. History of uterine fibroids. History of bilateral salpingectomy with . History of x 1 and c- section x 1. Pelvic ultrasound 09/05/24 demonstrated 4 fibroids within the uterus, largest measures 3 cm. There also appears to be a polyp within the endometrial cavity. She desires definitive surgical intervention with hysterectomy. Operative findings:: 1. Slightly enlarged uterus with multiple fibroids 2. Grossly normal appearing bilateral ovaries. Bilateral fallopian tubes surgically absent. 3. No evidence of adhesions or endometriosis Operative note:: Discussed risks, benefits, alternatives, expectations and possible complications of surgery. All questions addressed and answered. Patient wished to proceed with surgery. Patient was wheeled back to the operating room and placed under general anesthesia without difficulty. The patient received 2 grams of Ancef and 500 mg Metronidazole preoperatively. SCDs in place. Turner catheter was inserted and draining clear urine prior to the start of the procedure. Then she was placed in the supine position. She was prepped and draped in normal sterile fashion. Attention was then turned to the abdomen. A Pfannenstiel skin incision was made 2 cm above pubic symphysis along prior Pfannenstiel scar. This was carried through to underlying layer of fascia. Fascia was incised in midline, extended laterally with Pillai scissors. Superior aspect of fascial incision was grasped with two Brandon clamps, elevated up, and rectus muscle dissected off bluntly and sharply with Pillai scissors. The rectus muscle was then in the midline and the peritoneum was entered bluntly with a digit. Peritoneal incision was then extended superiorly and inferiorly with good visualization of the bladder. O'Tex O'allison retractor was placed in the abdominal incision. Bowel was packed cephalad with warm moist laparotomy sponges. Bilateral uterine cornua grasped with Melany clamps. Uterus was deviated to the left, lright round ligament was placed on stretch and incised between two clamps. The distal stump of the roung ligament was suture ligated with 0 Vicryl suture. The proximal stump was held with a Brandon clamp. The leaves of the broad ligament were opened both anteriorly and posteriorly. The uterus was retracted cephalad. The anterior leaf of the broad ligament was opened down to the vesicouterine fold. Same procedure was carried out on the contralateral side. The vesicouterine peritoneal fold was elevated, and the bladder was dissected off of the lower uterine segment with sharp and blunt dissection. The uterus was retracted toward the pubic symphysis and deviated to left side. A finger was inserted through the peritoneum of the posterior leaf of the broad ligament under the suspensory ligament of the ovary and fallopian tube. The suspensory ligament of the ovary was doubly clamped, incised and tied with 0 Vicryl suture leaving the ovary in situ. The distal stump was doubly suture ligated. The same procedure was carried out on the contralateral side. The uterus was retracted cephalad and deviated to the left side. Uterine arteries were skeletonized. Three curved Brandon clamps were placed at the junction of the lower uterine segment on the uterine vessels. An incision was made between the upper clamp and two lower clamps. The stump was doubly suture ligated with 0 Vicryl. The same procedure was carried out on the contralateral side. The uterus was held in traction in the cephalad position and pubovescial cervical fascia was dissected inferiorly. Two straight Brandon clamps were applied to the cardinal ligament. Cardinal ligament was incised between the two clamps and the distal stump was ligated with 0 Vicryl suture. The same procedure was carried out on the contralateral side. Uterus was amputated from the cervix for better visualization. Uterus was handed off of sterile field and will be sent to pathology for review. Cervix was grasped with single tooth tenaculum and cervix retracted cephalad. Bilateral uterosacral ligaments were clamped between straight Brandon clamps, incised, and suture ligated with 0 Vicryl suture. The lower uterine segment and upper vagina were palpated between the thumb and first finger of the surgeon's hand to ensure that the ligaments have been completely incised. The vagina was entered with a Juancho scissors and cut circumferentially. The cervix was rem basilia and handed off of sterile field. Cervix will be sent with uterus to pathology. The edges of the vagina were grasped with straight Brandon clamps. Vaginal cuff was closed in a running locking manner with 1 Vicryl suture. Pelvis was irrigated. Hemostasis was noted. Surgicel powder was applied over closed vaginal cuff. Hemostasis noted. At this point all instruments and sponges were removed from the pelvis.? The peritoneum was grasped with Melany clamps x 3. The peritoneum was reapproximated with 0 Vicryl suture in a running stitch. The corners of the fascia were grasped with Brandon clamps, and the fascia was reapproximated with two # 1 Vicryl suture overlapped to the right of midline. Subcutaneous tissue was irrigated with clear return of fluids. The subcutaneous tissue was reapproximated with 2-0 Vicryl. The skin was reapproximated with Insorb suzanna. Steri strips and Telfa were placed over closed Pfannenstiel skin incision. Patient awoke from anesthesia without difficulty and was transferred to the recovery room in stable condition. Condition: stable Disposition: floor Specimens:: 1. Uterus and cervix Complications:: None
--- NOTE | 2024-12-18 10:20 | EXP.ANES.I ---
[facility] Anesthesia Record Part I Anesthesia Record I Intake, IV Amount: 1,400 Hydration: Adequate Estimated blood loss (mL): 200 Urine output (mL): 600 Blood Products used (#): none Blood Pressure: 124/77 SaO2: 93 Pulse Rate: 84 Airway Patency: Patent Respiratory Rate: 16 Temperature: 98.8 F Patient is:: Drowsy and Stable Stable to PACU at:: 10:15
[2024-12-18] MEDS: ONDANSETRON 4MG/2ML VIAL 4 MG IV (10:36)
[2024-12-18] MEDS: HYDROMORPHONE 2MG/ML SYRINGE 0.5 MG IV ×2 (10:40→10:48)
[2024-12-18] MEDS: LACTATED RINGERS 1000ML 1,000 ML 125 ML IV ×2 (11:18→21:53)
[2024-12-18] MEDS: HYDROMORPHONE 2MG/ML SYRINGE 1 MG IV ×2 (11:49→16:00)
[2024-12-18 13:52] LABS: Microscopic,Cath URINE MICROSCOPIC (MICROSCOPIC)
[2024-12-18 14:14] LABS: Appearance,Urine/Cath CLEAR (Clear); Bilirubin,Cath Negative (Negative); Blood, Urine/Cath Negative (Negative); Color,Urine/Cath YELLOW (Yellow); Glucose,Urine/Cath (UA) Negative (Negative); Ketones,Urine/Cath Negative (Negative); Leukocyte Esterase,Cath Negative (Negative); Nitrate,Cath Negative (Negative); PH,Urine/Cath 6.0 (5.0-8.5); Protein,Urine/Cath Negative (Negative); Specific Gravity, Urine/Cath 1.010 (1.005-1.030); Urobilinogen,Cath 0.2 EU/dl (0.2)
--- NOTE | 2024-12-18 14:45 | PC.NURSE ---
Patient resting in bed at this time. at bedside. Reports minimal pain. Turner draining clear, yellow urine freely. Scuds applied BLE. No edema noted, pulses 2+. Incision covered with clean, dry dressing low transverse. Oxygen applied at 2 L - r/t anesthesia and pain medical and scientific illustrator and patient sleeping soundly. No vaginal bleeding noted. Nausea has improved per patient. Declines any needs at this time.
[2024-12-18] MEDS: KETOROLAC 30MG/ML VIAL 30 MG IV ×2 (15:25→21:50)
--- NOTE | 2024-12-18 15:30 | PC.NURSE ---
Dr. Mitchell at bedside. Orders to d/c deyanira tonight and advance diet to regular. All orders r/v
[2024-12-18 16:00] LABS: Bacteria,Urine/Cath TRACE /lpf; RBC,Urine/Cath Occasional # /hpf (0-3)
--- NOTE | 2024-12-18 18:00 | PC.NURSE ---
Patient done well with mcmillan cath removal. up to bathroom. Mesh panties and pads provided. Bed linens changed. Patient done well ambulating. Declines any needs. Lungs remain cta and bowel sounds active x4. Dressing to low transverse incision cta.
[2024-12-18] MEDS: OXYCODONE 5MG IMMEDIATE RELEASE TABLET 5 MG PO ×2 (18:55→23:11)
--- NOTE | 2024-12-18 19:10 | PC.NURSE ---
Report received from Stephanie Smith RN
[2024-12-18] MEDS: POLYETHYLENE GLYCOL 3350 17 GM PACKET PO (19:57)
[2024-12-18] MEDS: SIMETHICONE 80MG CHEWABLE TABLET 160 MG PO (19:57)
[2024-12-18] MEDS: SENNOSIDES 8.6MG/DOCUSATE 50MG TABLET 1 TAB PO (19:57)
[2024-12-19 03:45] VITALS: O2SAT 98
[2024-12-19] MEDS: ACETAMINOPHEN 500MG TAB 1000 MG PO ×2 (03:51→10:20)
[2024-12-19] MEDS: SIMETHICONE 80MG CHEWABLE TABLET 160 MG PO (03:52)
[2024-12-19] MEDS: KETOROLAC 30MG/ML VIAL 30 MG IV ×2 (03:52→10:20)
[2024-12-19 04:01] VITALS: BP 134/79; PULSE 69; RESP 18; TEMP 36.6; O2SAT 97
--- NOTE | 2024-12-19 04:03 | PC.NURSE ---
Assisted patient up to bathroom at this time. Stand by assist only. Remained with patient due to ris of fall. Patients room tidyed and patient settled back to bed. Call light within reach. Drinks and Snack offered
[2024-12-19 06:47] LABS: Hematocrit 31.4 % (37.0-47.0); Hemoglobin 10.4 g/dL (12.2-16.2); Immature Granulocytes % 0.4 %; Mean Corpuscular HGB Conc 33.1 g/dL (31.8-35.4); Mean Corpuscular Hemoglobin 29.5 pg (27.0-31.2); Mean Corpuscular Volume 89.2 fl (81-99); Nucleated Red Blood Cells % 0 %; Platelet Count 280 K/mm3 (142-424); Red Blood Count 3.52 M/mm3 (4.20-5.40); Red Cell Distribution Width-SD 42.9 fL; White Blood Count 13.5 K/mm3 (4.8-10.8)
[2024-12-19 07:02] LABS: Albumin Level 3.6 g/dl (3.5-5.0); Chloride 107 mmol/L (98-107); Sodium 137 mmol/L (136-145)
[2024-12-19 07:03] LABS: Potassium 3.9 mmoL/L (3.5-5.1)
[2024-12-19 07:05] LABS: Alanine Aminotransferase 18 U/L (12-78); Albumin/Globulin Ratio 1.4 (1.1-1.8); Alkaline Phosphatase 54 U/L (38-126); Anion Gap 8.9 mEq/L (5-15); Aspartate Amino Transferase 21 U/L (14-36); Bilirubin,Total 0.4 mg/dl (0.2-1.3); Blood Urea Nitrogen 13 mg/dl (7-17); Carbon Dioxide 25 mmol/L (22.0-30.0); Creatinine Clearance Estimated 201 mL/min (50-200); Creatinine,Serum 0.60 mg/dl (0.52-1.04); Estimated Glomerular Filt Rate 111 ml/min (>60); GFR (African American) 134 ML/MIN (>60); Globulin 2.5 g/dL (1.3-3.2); Total Protein,Serum 6.1 g/dl (6.3-8.2)
[2024-12-19 07:06] LABS: Calcium 8.4 mg/dl (8.4-10.2); Glucose 108 mg/dl (74-100)
[2024-12-19 07:45] VITALS: BP 117/69; PULSE 73; RESP 18; TEMP 36.9; O2SAT 97
--- NOTE | 2024-12-19 07:51 | EXP.ANES.II ---
[facility] Anesthesia Record Part II Anesthesia Record Part II Discharge Time: 10:55 Destination: Obstetric PACU nurse assessment reviewed?: Yes Patient Condition:: Good Anesthesia Complications:: None Swallowing reflex intact?: Yes Airway Patency: Patent Cyanosis?: No Blood Pressure: 151/95 SaO2: 95 Respiratory Rate: 18 Pulse Rate: 93 Temperature: 98.8 F Mental Status: Alert & Oriented Pain level:: 3 Nausea and/or vomitting:: None Intake, IV Amount: 0 Hydration: Adequate
[2024-12-19 07:52] VITALS: BP 151/95; PULSE 93; RESP 18; TEMP 37.1; O2SAT 95
--- NOTE | 2024-12-19 08:38 | P.DS_ITS ---
General Admission date:: 12/18/24 Discharge date: 12/19/24 HPI HPI HPI: POD # 1 s/p NAHED Resting comfortably in bed. Pain controlled with PO medication. Voiding without difficulty and passing flatus. Tolerating regular diet. Denies fever/chills, chest pain and shortness of breath. Ambulating well ad cipriano. No lower extremity swelling or calf pain. Hospital Course Hospital Course Hospital Course: Mrs Irena Rosario is a 39 yo P2002 who presents to [facility] for scheduled surgery. She complains of very heavy, irregular periods. History of uterine fibroids. History of bilateral salpingectomy with . History of x 1 and c- section x 1. Pelvic ultrasound 09/05/24 demonstrated 4 fibroids within the uterus, largest measures 3 cm. There also appears to be a polyp within the endometrial cavity. She desires definitive surgical intervention with hysterectomy. She underwent total abdominal hysterectomy on 12/18/24. She did well postoperatively. Pain controlled with PO medication. She was voiding without difficulty and passing flatus. Tolerating regular diet. No chest pain, fev er/chills or shortness of breath. Vital signs stable/afebrile. Heart regular rate and rhythm. Lungs clear to auscultation. Abdomen soft, nontender. Incision clean/dry/intact with steri strips. She was ambulating well ad cipriano. She was discharged home on POD # 1 with instructions to follow-up in the office in two weeks or sooner if needed. Exam Data for Last 24 hours Vital signs and Labs for Last 24 Hours: Temp Pulse Resp BP Pulse Ox O2 Del Method O2 Flow Rate 98.4 F 73 18 117/69 97 Room Air 2 12/19/24 07:45 12/19/24 07:45 12/19/24 07:52 12/19/24 07:45 12/19/24 07:45 12/19/24 07:45 12/18/24 14:40 Laboratory Results - last 24 hr 12/18/24 06:32: Antibody Screen Negative 12/18/24 : Urine Color Yellow, Urine Appearance Clear, Urine pH 6.0, Ur Specific [place] 1.010, Urine Protein Negative, Urine Glucose (UA) Negative, Urine Ketones Negative, Urine Blood Negative, Urine Nitrate Negative, Urine Bilirubin Negative, Urine Urobilinogen 0.2, Ur Leukocyte Esterase Negative, Urine RBC Occasional, Urine WBC None, Ur Squamous Epith Cells 3-5, Urine Bacteria Trace 12/19/24 05:18: WBC 13.5 H, RBC 3.52 L, Hgb 10.4 L, Hct 31.4 L, MCV 89.2, MCH 29.5, MCHC 33.1, RDW 13.2, Plt Count 280, MPV 9.8, Neut % (Auto) 71.2, Lymph % (Auto) 18.9, [place] % (Auto) 9.3, Eos % (Auto) 0.0 L, Baso % (Auto) 0.2, Neut # (Auto) 9.6 H, Lymph # (Auto) 2.6, [place] # (Auto) 1.3 H, Eos # (Auto) 0.0, Baso # (Auto) 0.0, Sodium 137, Potassium 3.9, Chloride 107, Carbon Dioxide 25, Anion Gap 8.9, BUN 13, Creatinine 0.60, Estimated Creat Clear 201, Estimated GFR 111, Est GFR ( Amer) 134, Glucose 108 H, Calcium 8.4, Total Bilirubin 0.4, AST 21, ALT 18, Alkaline Phosphatase 54, Total Protein 6.1 L, Albumin 3.6, Globulin 2.5, Albumin/Globulin Ratio 1.4 I & O for Last 24 hours: Intake & Output 12/16/24 12/17/24 12/18/24 12/19/24 23:59 23:59 23:59 23:59 Intake Total 3650.000 / 3650.000 1050 / 1050 Output Total 2700 / 2700 Balance 950.000 / 915.276 8871 / 1050 Weight 225 lb Constitutional Constitutional: no acute distress and cooperative *Routine HEENT Exam Head: Present normocephalic and atraumatic Eye: Absent conjunctivae pink ENT: Present mucous membranes moist *Routine Neck Exam Neck: Present full ROM *Routine Respiratory Exam Respiratory: Present CTA bilaterally and normal respiratory effort *Routine Cardiovascular Exam Cardiovascular: Present RRR *Routine Abdominal Exam Abdominal: Present soft and normoactive bowel sounds; Absent tenderness or distended Comments: Pfannenstiel incision clean/dry/intact with steri strips in place *Routine Rectal Exam Patient deferred: visual exam *Routine Exam Patient deferred: external exam *Routine Extremities Exam Extremities: Present full ROM; Absent edema or calf tenderness *Routine Neurological Exam Neurological: Present alert, moving all extremities and normal speech Routine Psychiatric Exam Psychiatric: Present normal affect and cooperative Results Data Completed and Pending Labs on day of discharge: Labs from last 24 hours 12/19/24 12/18/24 12/18/24 05:18 Unknown 06:32 WBC 13.5 H RBC 3.52 L Hgb 10.4 L Hct 31.4 L MCV 89.2 MCH 29.5 MCHC 33.1 RDW 13.2 Plt Count 280 MPV 9.8 Neut % (Auto) 71.2 Lymph % (Auto) 18.9 [place] % (Auto) 9.3 Eos % (Auto) 0.0 L Baso % (Auto) 0.2 Neut # (Auto) 9.6 H Lymph # (Auto) 2.6 [place] # (Auto) 1.3 H Eos # (Auto) 0.0 Baso # (Auto) 0.0 Sodium 137 Potassium 3.9 Chloride 107 Carbon Dioxide 25 Anion Gap 8.9 BUN 13 Creatinine 0.60 Estimated Creat Clear 201 Estimated GFR 111 Est GFR ( Amer) 134 Glucose 108 H Calcium 8.4 Total Bilirubin 0.4 AST 21 ALT 18 Alkaline Phosphatase 54 Total Protein 6.1 L Albumin 3.6 Globulin 2.5 Albumin/Globulin Ratio 1.4 Urine Color Yellow Urine Appearance Clear Urine pH 6.0 Ur Specific [place] 1.010 Urine Protein Negative Urine Glucose (UA) Negative Urine Ketones Negative Urine Blood Negative Urine Nitrate Negative Urine Bilirubin Negative Urine Urobilinogen 0.2 Ur Leukocyte Esterase Negative Urine RBC Occasional Urine WBC None Ur Squamous Epith Cells 3-5 Urine Bacteria Trace Antibody Screen Negative DS: Diagnosis Discharge Diagnosis (1) S/P total abdominal hysterectomy: Status: Acute Code(s): Z90.710 - Acquired absence of both cervix and uterus Problem details: 12/18/24 (2) Menorrhagia with irregular cycle: Status: Acute Code(s): N92.1 - Excessive and frequent menstruation with irregular cycle (3) Fibroid uterus: Status: Acute Code(s): D25.9 - Leiomyoma of uterus, unspecified Qualifiers: Uterine leiomyoma location: unspecified location Qualified Code(s): D25.9 - Leiomyoma of uterus, unspecified (4) S/P : Status: Acute Code(s): Z98.891 - History of uterine scar from previous surgery Problem details: with bilateral salpingectomy 02/17/23 Meds Home Medications and Allergies Home Medications ?Medication ?Instructions ?Recorded ?Confirmed ?Type cetirizine 10 mg tablet (Zyrtec) 10 mg PO DAILYP PRN a llergies 09/03/24 12/18/24 History ibuprofen 800 mg tablet 800 mg PO Q8H PRN pain #20 t abs 12/19/24 Rx oxycodone 5 mg tablet 5 mg PO Q4HP PRN Moderate Pa in 12/19/24 Rx (4-6) #20 tabs New Prescriptions to Start Prescriptions: Nitza Sheffield oxycodone Nitza Mitchell Allergies Allergy/AdvReac Type Severity Reaction Status Date / Time cefaclor (From CECLOR) Allergy Unknown Other Verified 12/18/24 06:31 clarithromycin (From BIAXIN) Allergy Unknown Dizziness Verified 12/18/24 06:31 Discharge Plan Disposition Patient Disposition: Home, Self-Care Condition: Good Discharge Order Discharge Orders: Discharge Order (Routine); Ordered 12/19/24 Ordered By: Nitza Mitchell Follow up Plan Follow up with: Nitza Mitchell DO [Staff Physician, NITRIC [employer] CONCENTRATOR OPERATOR] - 2 weeks Prescriptions/Medication Reconciliation: New oxycodone 5 mg Tablet 5 mg PO Q4HP PRN (Reason: Moderate Pain (4-6)) Qty: 20 0RF ibuprofen 800 mg tablet 800 mg PO Q8H PRN (Reason: pain) Qty: 20 0RF Continued cetirizine [Zyrtec] 10 mg tablet 10 mg PO DAILYP PRN (Reason: allergies) Problem Reconciliation Problems Reviewed?: Yes Patient Discharge Instructions ACTIVITY: Limited activity DIET: continue same diet and regular diet Additional Instructions: Additional Instructions: You had a total abdominal hysterectomy. This means that your uterus and cervix were removed. The top of your vagina is closed with dissolvable sutures. You will follow-up in office for a postop visit at 2 weeks and at 6 weeks. At your 6-week postop appointment you will have a pelvic exam to ensure your cuff is healing well. Discharge: 1. Take 800 mg Ibuprofen every 8 hours as needed for pain. You can also take 1000 mg of Tylenol in between doses, every 6-8 hours and Oxycodone 5 mg, 1 tablet every 4-6 hours or longer as needed. 2. Take Miralax twice daily for the next 2-3 days and then as needed Activity: - No lifting more than 10 lbs for 6 weeks. - No driving for 7 days and/or while you are taking narcotic pain medication. Wound care - Keep your wound clean and dry, ok to wash with regular soap and water but pat thoroughly dry Please call the office or return to the ER if you have any of the followin. heavy vaginal bleeding 2. pain that does not respond to your narcotic pain medication 3. dizziness or lightheadedness such that you lose consciousness 4. abnormal discharge from your incision Questions or concerns: It is my privilege to be your doctor. Please let me know if you have other questions or concerns. Nitza Mitchell DO [facility] [place], [place] [address] Print Language: [place] Providers Primary Care Provider: Rosalba Castellanos Admit Provider: Nitza Mitchell Attending Provider: Nitza Mitchell
[2024-12-19] MEDS: POLYETHYLENE GLYCOL 3350 17 GM PACKET PO (09:03)
[2024-12-19] MEDS: OXYCODONE 5MG IMMEDIATE RELEASE TABLET 5 MG PO (09:05)
[2024-12-19] MEDS: SENNOSIDES 8.6MG/DOCUSATE 50MG TABLET 1 TAB PO (09:05)
== END 2024-12-19 13:08 | disposition home or self-care (01) | DRG 742 ==
LOC: OB 06:08
PROVIDERS: Admitting Provider Obstetrics & Gynecology; PCP Nurse Practitioner Family; Visit Provider Obstetrics & Gynecology
PROC: 0UT90ZZ Resection of Uterus, Open Approach (ICD-10-PCS; CPT 58150; principal; 2024-12-18 07:30)
DX: D25.2 Subserosal leiomyoma of uterus (principal); Z68.41 Body mass index [BMI] 40.0-44.9, adult; E66.9 Obesity, unspecified; N84.0 Polyp of corpus uteri; N92.1 Excessive and frequent menstruation with irregular cycle; Z90.79 Acquired absence of other genital organ(s); Z98.891 History of uterine scar from previous surgery; Z88.1 Allergy status to other antibiotic agents
CPT/HCPCS: 36415; 51702; 80053; 81001; 85025; 86850; 96374; J0665; J0666; J0690; J1100; J1171; J1836; J1885; J2003; J2250; J2405; J2704; J3010; J7120

== ENCOUNTER 2025-01-29 15:09 | Outpatient (CLI) | payer OTHER, SELFPAY ==
--- OUTSIDE RECORDS SUMMARY | 2025-01-30 10:04 | XMS_ITS | Clinical Summary ---
[facility] Address [address] [place] [address] Care Team Providers Care Journeyman Electrician Name Role Phone Rosalba Castellanos APRN Primary [...] ANNUAL PHYSICAL 09/22/2022 HEPATITIS C SCREENING 09/22/2022 MAMMOGRAM 2024 INFLUENZA VACCINE 11/30/2024 Pneumococcal Vaccine 0-49 Aged Out No longer eligible based on patient's age to complete this topic Insurance [employer] [place] [id number] Care Teams Journeyman Electrician Relationship Specialty Start Date End Date Rosalba Castellanos APRN PCP - General Internal Medicine 09/22/22
== END 2025-01-29 23:59 | disposition home or self-care (01) ==
LOC: LAB.DROPOF 01-30 09:44
PROVIDERS: PCP Obstetrics & Gynecology; Visit Provider Obstetrics & Gynecology
DX: N89.8 Other specified noninflammatory disorders of vagina (principal)
CPT/HCPCS: 87491; 87529; 87591; 87661; 87798; 87801

== ENCOUNTER 2025-04-10 06:50 | Outpatient (CLI) | payer OTHER, SELFPAY ==
--- OUTSIDE RECORDS SUMMARY | 2025-04-10 06:54 | XMS_ITS | Clinical Summary ---
[facility] Address [address] [place] [address] Care Team Providers Care Manager Emergency Department Name Role Phone Rosalba Castellanos APRN Primary Care Provider [phone] Allergies Active Allergy Reactions Criticality Noted Date [...] age to complete this topic Insurance [employer] [place] [id number] Care Teams Manager Emergency Department Relationship Specialty Start Date End Date Rosalba Castellanos APRN PCP - General Internal Medicine 09/22/22
[2025-04-10 10:26] LABS: Cholesterol 197 mg/dl (140-200); HDL Cholesterol 54 mg/dl (40-60); Triglycerides 268 mg/dl (30-150)
[2025-04-10 14:21] LABS: Hemoglobin A1C 5.5 % (4.0-6.0)
== END 2025-04-10 23:59 | disposition home or self-care (01) ==
LOC: LAB 06:51
PROVIDERS: PCP Internal Medicine; Visit Provider Internal Medicine
DX: E78.5 Hyperlipidemia, unspecified (principal); Z13.220 Encounter for screening for lipoid disorders; I10 Essential (primary) hypertension; Z13.1 Encounter for screening for diabetes mellitus
CPT/HCPCS: 36415; 80061; 83036

== ENCOUNTER 2025-04-12 08:58 | Outpatient (CLI) | payer OTHER, SELFPAY ==
[2025-04-12 14:29] LABS: Influenza A, PCR Not Detected (NotDetected); Influenza B, PCR Not Detected (NotDetected)
[2025-04-12 16:04] LABS: Coronavirus 19, PCR Detected (NotDetected)
== END 2025-04-12 23:59 | disposition home or self-care (01) ==
LOC: LAB.DROPOF 04-15 08:59
PROVIDERS: PCP Internal Medicine; Visit Provider Student in an Organized Health Care Education/Training Program
DX: R50.9 Fever, unspecified (principal)
CPT/HCPCS: 87631